=== PATIENT | male | born 1995 | race Caucasian/White ===

== ENCOUNTER → 2023-02-22 16:02 | Outpatient (BNVA) | payer OTHER, SELFPAY | PROVIDERS: PCP Nurse Practitioner Family; Visit Provider Otolaryngology | DX: S02.2XXA Fracture of nasal bones, initial encounter for closed fracture (principal); W21.07XA Struck by softball, initial encounter | CPT/HCPCS: 99203 ==

== ENCOUNTER 2023-04-09 13:51 | Emergency (ER) | payer OTHER, SELFPAY ==
[2023-04-09 13:54] VITALS: BP 122/82; PULSE 108; RESP 16; TEMP 37.1; O2SAT 96; BMI 38.7
--- NOTE | 2023-04-09 13:59 | XRR_ITS ---
PROCEDURE INFORMATION: Exam: XR Left Ankle Exam date and time: 04/09/2023 2:23 PM Age: 27 years old Clinical indication: Pain; Ankle; Left; Additional info: Fall pain TECHNIQUE: Imaging protocol: Radiologic exam of the left ankle. Views: 3 or more views. COMPARISON: No relevant prior studies available. FINDINGS: Bones/joints: Distal fibular metaphyseal comminuted mildly displaced fracture. Soft tissues: Normal. XR/XR ankle LT min 3V* [id number] IMPRESSION: Distal fibular metaphyseal comminuted mildly displaced fracture.
--- NOTE | 2023-04-09 13:59 | XRR_ITS ---
PROCEDURE INFORMATION: Exam: XR Left Foot Exam date and time: 04/09/2023 2:23 PM Age: 27 years old Clinical indication: Pain; Ankle; Left; Additional info: Fall pain TECHNIQUE: Imaging protocol: Radiologic exam of the left foot. Views: 3 or more views. COMPARISON: No relevant prior studies available. FINDINGS: Bones/joints: Normal. Soft tissues: Soft tissue swelling to the dorsum of the forefoot. XR/XR foot LT min 3V* [id number] IMPRESSION: 1. No acute bony findings. 2. Soft tissue swelling to the dorsum of the forefoot.
--- NOTE | 2023-04-09 13:59 | W.ED.EXTPRO ---
HPI - Extremity Problem General: Chief complaint: Extremity Injury, Lower Stated complaint: left ankle pain Time Seen by Provider: 04/09/23 13:53 History of Present Illness: Patient reports to the ER by EMS with complaints of left ankle pain. Patient states he was skating when he tripped and fell twisted his left ankle reports increasing pain and swelling since the fall. He was given approximately 100 mcg of fentanyl 4 mg Zofran on route to ER by EMS. Patient currently rates his pain 5 out of 10. Patient states the pain is worse with movement and better after he had was placed in a same splint and given pain medicine. Patient is never had any problems with this foot before however he has similar problems with the other foot. Review of Systems General: Reports: 10 or more systems reviewed and unremarkable except in HPI and below PFSH ED PFSH: Social History Smoking and tobacco status: never smoked Second hand smoke exposure: No Alcohol intake: never Substance/Drug Use: never Physical Exam Const: COMMON NORMALS: no acute distress, average body habitus, patient oriented x3, no limitations, healthy appearing, alert and well nourished HENMT: COMMON NORMALS: normocephalic, atraumatic, hearing grossly normal bilaterally, external ears normal, Normal external nose present and moist oral mucous membranes HEAD & SCALP: normocephalic and atraumatic NOSE: Normal external nose present EXTERNAL EAR: Yes external ears normal Neck/C-Spine: COMMON NORMALS: full ROM, no lymphadenopathy, supple, no meningeal signs, no JVD and Thyroid normal THYROID: Thyroid normal Chest: COMMONS NORMALS: normal inspection of the chest and normal palpation of entire chest wall Resp: COMMON NORMALS: normal respiratory effort, No retractions, No use of accessory muscles and clear to auscultation bilaterally AUSCULTATION: clear to auscultation bilaterally Cardio: COMMON NORMALS: no JVD, regular rate, regular rhythm, S1 normal heart sound present, S2 normal heart sound present, No gallops present (Cardio), No clicks present (Cardio), No murmurs present (Cardio) and No rub (Cardio) RATE: regular rate RHYTHM: regular rhythm HEART SOUNDS: S1 normal heart sound present and S2 normal heart sound present GI: COMMON NORMALS: Normal to inspection, nondistended, normoactive bowel sounds present, Soft to palpation, non-tender, No hepatosplenomegaly present and no masses PALPATION: Yes Soft to palpation and Yes No hepatosplenomegaly present : COMMON NORMALS: Yes no CVA tenderness BLADDER/KIDNEY EXAM: Yes no CVA tenderness Back/Pelvis: COMMON NORMALS: no CVA tenderness Extremity: NARRATIVE EXTREMITY EXAM: Left ankle in same splint stirrup style pain with palpation mild swelling. Neuro: COMMON NORMALS: patient oriented x3 SENSORIUM/ORIENTATION: Yes alert MENINGEAL SIGNS: Yes no meningeal signs Course Vital Signs: Vital signs: Vital Signs Temperature 98.8 F 04/09/23 13:54 Pulse Rate 108 H 04/09/23 13:54 Respiratory Rate 16 04/09/23 13:54 Blood Pressure 122/82 04/09/23 13:54 Pulse Oximetry 96 04/09/23 13:54 Oxygen Delivery Me thod Room Air 04/09/23 13:54 MDM - Extremity (Nontraumatic) Medical Decision Making Patient presents to the ER with complaints of foot and ankle pain status post fall. X-ray was obtained which did show distal fibular metaphyseal comminuted mildly displaced fracture. Patient be put in a OCL type splint and will be referred to Ortho. Patient be discharged home. Differential Diagnosis Unlikely herpes zoster, gout, cellulitis, superficial thrombophlebitis, deep venous thrombosis of upper extremity, lower extremity edema or deep vein thrombosis of lower extremity Medical Records I reviewed the patient's medical records. Lab Data I reviewed the patient's lab results. Radiology Impressions Ankle X-Ray 04/09/23 13:59 IMPRESSION: Distal fibular metaphyseal comminuted mildly displaced fracture. Foot X-Ray 04/09/23 13:59 IMPRESSION: 1. No acute bony findings. 2. Soft tissue swelling to the dorsum of the forefoot. Discharge Plan Discharge Patient Disposition: Home Clinical Impression: Fracture of distal end of fibula Qualifiers: Encounter type: initial encounter Fracture type: closed Fracture morphology: unspecified fracture morphology Laterality: left Qualified Code(s): S82.832A - Other fracture of upper and lower end of left fibula, initial encounter for closed fracture Condition: Stable Prescriptions: New hydrocodone-acetaminophen 5-325 mg tablet 1 tab PO Q6H PRN (Reason: pain) Qty: 14 0RF No Action No Known Home Medications Discharge Orders: Discharge ED (Routine); Ordered 04/09/23 Ordered By: Elliot Humphrey Referrals: Gaye Hurley APN [Primary Care Provider] - 1 week Patient Instructions: Ankle Fracture (ED), Opioid Safety, Pain Management Activity Restrictions/Additional Instructions: Please take your pain medicine as directed as needed. You have been referred to case management they will be working on getting you a referral to the orthopedic surgeon please anticipate a call from them within the next few days. If they have not contacted you please feel free to call back. Otherwise follow-up with your primary care practitioner in approximately 1 week as needed. Coding Level of Care Code ED Material Planner for Arleen Boyd
[2023-04-09 15:55] VITALS: BP 133/86; PULSE 92; RESP 16; O2SAT 97
[2023-04-09 15:56] VITALS: BP 133/86; PULSE 92; RESP 16; O2SAT 97
--- NOTE | 2023-04-10 11:17 | DCPLANNER ---
Addendum entered by Cecily Mathur 04/20/23 11:09: Patient had a follow up appointment scheduled with ortho - patient did attend appointment. Original Note: manager lighting had message to schedule a follow up appointment for patient with ortho. manager lighting sent patients information to the front office staff at ortho. Patients information will be printed and reviewed. Clinic will call patient with appointment information.
== END 2023-04-09 15:59 | disposition home or self-care (01) ==
PROVIDERS: Emergency Provider Emergency Medicine; PCP Nurse Practitioner Family
DX: S82.452A Displaced comminuted fracture of shaft of left fibula, initial encounter for closed fracture (principal); W01.0XXA Fall on same level from slipping, tripping and stumbling without subsequent striking against object, initial encounter; Y93.51 Activity, roller skating (inline) and skateboarding; Y92.331 Roller skating rink as the place of occurrence of the external cause
CPT/HCPCS: 29505; 73610; 73630; 99283

== ENCOUNTER 2023-04-16 06:51 | Day surgery (SDC) | payer OTHER, SELFPAY ==
[2023-04-15 15:53] VITALS: BMI 38.7
[2023-04-16] VITALS (14 sets, daily range): BP systolic 111–132; BP diastolic 66–87; PULSE 77–96; RESP 14–25; TEMP 36.1–36.6; O2SAT 95–99
--- NOTE | 2023-04-16 | XR_ITS ---
WS: [id number] Exam: XR ankle LT 2V [id number] Date/Time of Exam: 04/16/2023 12:00 AM Reason For Exam: orif ankle Comparison 04/09/2023. There is plate and screw fixation involving a fracture of the lower fibula stabilized in anatomic pos ition for healing. The ankle mortise is intact. XR/XR ankle LT min 3V* [id number] IMPRESSION: 1. Internal fixation involving a fracture of the lower fibula in excellent posi tion for healing.
--- NOTE | 2023-04-16 06:28 | W.PM.OPSUD ---
Surgery/Procedure H&P Update DATE OF PROCEDURE: April 16, 2023 DATE H&P PERFORMED: 04/12/23 CHANGES TO PREVIOUS DOCUMENTATION: None PLANNED PROCEDURE: Operation Date: 04/16/23 08:25 Proposed Procedures p Open reduction internal fixation left distal fibular fracture 31687,?S82.62XA(Left) - Vic Angelo DPM
[2023-04-16] MEDS: sodium chloride 0.9% 1,000 ML 30 ML IV (07:30)
[2023-04-16] MEDS: ondansetron 2 mg/ML SDV 2 mL 4 MG IVP (07:30)
[2023-04-16] MEDS: midazolam 1 mg/mL INJ 5 ML 5 MG IVP (07:39)
--- NOTE | 2023-04-16 07:48 | ANES.PREANE2 ---
Pre-Anesthetic Assessment Height/Weight: Height 1.68 m Weight 108.862 kg Temp Pulse Resp BP Pulse Ox O2 Del Method 97 F L 95 18 129/87 97 Room Air 04/16/23 07:20 04/16/23 07:20 04/16/23 07:20 04/16/23 07:20 04/16/23 07:20 04/16/23 07:20 Preop Diagnosis: Left distal fibular fracture Operation Date: 04/16/23 08:25 Proposed Procedures p Open reduction internal fixation left distal fibular fracture 32067,?S82.62XA(Left) - Vic Angelo DPM Familial anesthetic complications: none Was Beta Mojgan taken within 24 hours: N/A Was Clonidine taken within 24 hours: N/A Last intake: Intake Last Liquid Date 04/16/23 Last Liquid Time 06:00 Last Solid Date 04/15/23 Last Solid Time 18:30 Social No alcohol and No tobacco Exam alert, oriented x 3, clear to auscultation bilaterally and regular rate & rhythm Airway Mallampati: Class II Dentition: full Metabolic Morbid Obesity Anesthetic Plan ASA status: 2 Anesthesia: General and Regional (specify below) Medications/Allergies Home Medications Medication Instructions Recorded Confirmed Last Taken Type hydrocodone 10 mg-acetaminophen 1 tab PO Q6H PRN pain 7 days #28 04/16/23 Unknown Rx 325 mg tablet tabs Allergies Allergy/AdvReac Type Severity Reaction Status Date / Time No Known Allergies Allergy Verified 04/16/23 07:05 [facility] Anesthesia Social History Smoking and tobacco status: never smoked Second hand smoke exposure: No Alcohol intake: never Substance/Drug Use: never Data Anesthesia Cardiac Studies: No Data to Display
--- NOTE | 2023-04-16 07:49 | ANES.PROC ---
Anesthesia Procedures Procedure/Date: 04/16/23 Nerve Block ^: Nerve Block 1: Main Anesthesia: general anesthesia Time Out Performed: Yes Consent: requested by attending/covering physician, from patient, from other, risks and benefits reviewed, patient agrees to proceed and emergency procedure Nerve block location: popliteal (L) Anesthesia monitors applied: pulse oximetry, EKG, BP cuff and oxygen Nerve block position: supine Anesthetic Used: ropivicaine 0.5% (30 ml) and with decadron (4 mg) Ultrasound used to: recognize landmarks and visualize and ID femerol nerve Nerve Stimulator Used?: No Interscalene/Femoral BLK: 4 stimuplex 21 g needle used for position and inplane approach, visualize local anesthetic spread and no vascular puncture identified Injection: neg aspiration of heme Patient Tolerated Procedure: well Complications: none
[2023-04-16] MEDS: CELEcoxib 200 mg Capsule 400 MG PO (07:50)
[2023-04-16] MEDS: gabapentin 300 mg Capsule PO (07:52)
[2023-04-16] MEDS: ceFAZolin 2,000 MG in sodium chloride 0.9% (plus) 50 ML 100 MG IV (08:07)
--- NOTE | 2023-04-16 09:11 | P.OP_ITS ---
Operative Report Date of procedure: April 16, 2023 Pre-op diagnosis: Preop Diagnosis Left distal fibular fracture Post-op diagnosis: Left distal fibular fracture Procedure done: Open reduction internal fixation left distal fibular fracture. CPT code 41113 Implants: 2-0 Vicryl, 3-0 Vicryl, skin marilyn, fibular plate provided by [place] 28. 3.5 mm locking screws. 0.5% Marcaine plain 10 cc. Specimens removed/disposition: None Pathology: None Surgeon: Vic Angelo D.P.M. 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 Patient examined and evaluated, findings and treatment options were discussed with patient at length.? Reviewed x-rays taken in the emergency department on 04/09/2023 which is significant for a Jonny Choudhary C fracture with 2 mm of displacement, shortening and mild angulation medially of the distal fragment.? Ankle mortise is congruent.? There is subtle widening of the medial gutter which may be indicative of syndesmotic versus deltoid injury.? Recommended open reduction internal fixation of left distal fibular fracture and further evaluation of soft tissue supporting structures such as syndesmosis and deltoid cyst can be stressed intraoperatively and repaired if necessary.? Patient is agreeable wishes to proceed.? I reviewed at length with the patient, the risks, potential complications, benefits, alternatives, expectations, and typical outcomes associated with the surgery. The risks and potential complications were explained in detail, including but not limited to infection, wound dehiscence or soft tissue complications, bleeding and hematoma, chronic edema, neuritis or nerve damage producing numbness or chronic pain, CRPS, failure to relieve pain or worsening pain, thick / painful / unsightly scar, limited motion / stiffness, malposition, delayed union, malunion, or nonunion, fracture, reaction to implants, anesthetic complications, venous thromboembolism, and deformity recurrence.? I discussed the notion of no regrets with the patient as it pertains to complications and outcomes. The patient seemed to understand the nature of the proposed care and required convalescence. They asked appropriate questions, answered to their satisfaction. They are aware no guarantees can be made as to a satisfactory outcome and they understand there may be other pos sible unforeseen complications or outcomes not listed here that will be treated accordingly if they arise. There were no written or implied guarantees given to the patient. They gave informed consent to proceed. Procedure: Under mild sedation the patient was brought to the operating room and placed onto the operating table in supine position. A timeout was performed. Anesthesia was then administered by the anesthesia service. A left popliteal block was performed per anesthesia preoperatively. Well-padded pneumatic tourniquet was applied to the left high calf. Saphenous nerve block performed by myself with 5 cc of 0.5 sent Marcaine plain and 5 cc of 0.5% Marcaine plain administered in a V-block proximal to the operative site at the lateral ankle. The left lower extremity was scrubbed, prepped and draped utilizing normal aseptic technique. The left foot and ankle were exanguinated with an Esmarch bandage and the tourniquet inflated to 250 mmHg. Attention was directed to the left lateral ankle where a linear longitudinal incision was made directly over the lateral malleolus extending proximally through skin with a #15 blade. Dissection was carried down through subcutaneous tissue to the layer of periosteum utilizing a combination of sharp and blunt technique. Care was taken to retract and preserve neurovascular and tendinous structures. All bleeders were ligated and cauterized as necessary. The fracture was located and distracted and evacuated of its hematoma utilizing curettage and saline flush, fracture was reduced and fixated utilizing standard AO technique with a [place] 28 anatomic fibular plate and 3.5 mm locking screws with excellent bony apposition and compression noted. The fracture was anatomically reduced and this was confirmed utilizing the AP, oblique and lateral standard views of the left ankle utilizing intraoperative C arm, the left fibula was pulled out to length and derotated without angulation appreciated with fracture reduced and no hardware violating the ankle mortise. Smooth range of motion was appreciated of the left ankle. Cotton hook test was performed and syndesmosis and deltoid ligaments were intact. The incision was then irrigated with copious amounts of sterile skin solution and closed in a layered fashion. Periosteum was reapproximated utilizing 2-0 Vicryl, subcutane ous tissue reapproximated with 3-0 Vicryl and skin was closed with skin marilyn. The incision was dressed with Adaptic, sterile 4 x 4's, Kerlix and Brett wrap followed by application of a cam boot holding the ankle in neutral position. The tourniquet was deflated and a prompt hyperemic response was noted to the distal digits of the left foot. Patient tolerated the procedure and anesthesia well and was transferred to the PACU with vital signs stable and vascular status intact. Following a period of postoperative monitoring he will be discharged home is to remain strict nonweightbearing to the left lower extremity. He is to remain immobilized with a cam boot at all times and elevate his left foot while resting. He has crutches to assist with ambulation and nonweightbearing status. Prescription for hydrocodone 10/325 mg to be taken every 4-6 hours as needed for pain sent to [facility]. Patient was given at home care instructions, follow-up and my cell phone number to contact me with postoperative questions or concerns. I advised an 81 mg aspirin to be taken starting tomorrow morning after surgery 04/17/2023 until he is weightbearing again in approximately 6 weeks from now. Baby aspirin may potentially help reduce the risks of deep vein thrombosis.
[2023-04-16] MEDS: metoclopramide 5 mg/mL SDV 2 mL 10 MG IVP (09:42)
[2023-04-16] MEDS: scopolamine 1.5 Patch 1 PATCH TRANSDERMA (09:50)
[2023-04-16] MEDS: diphenhydrAMINE 50 mg/mL SDV 1mL 12.5 MG IVP (09:53)
--- NOTE | 2023-04-16 14:20 | ANE.PACU2 ---
Inpatient post-anesthesia follow up: Airway intact: Yes Vital signs: Temperature 98 F Pulse Rate 77 Respiratory Rate 18 Blood Pressure 132/82 Pulse Oximetry 97 Oxygen Delivery Me thod Room Air Oxygen Flow Rate 10.0 Fraction of Inspir ed Oxygen Hydration adequate: Yes Nausea and vomiting: No Pain level: 1 Mental status: Baseline
== END 2023-04-16 11:05 | disposition home or self-care (01) ==
PROVIDERS: PCP Nurse Practitioner Family; Visit Provider Podiatrist Foot & Ankle Surgery
PROC: (CPT 27792; principal; 2023-04-16 08:15)
DX: S82.832A Other fracture of upper and lower end of left fibula, initial encounter for closed fracture (principal); W17.89XA Other fall from one level to another, initial encounter; Y93.51 Activity, roller skating (inline) and skateboarding; Y99.0 Civilian activity done for income or pay; E66.01 Morbid (severe) obesity due to excess calories; Z68.38 Body mass index [BMI] 38.0-38.9, adult
CPT/HCPCS: 27792; 73610; 76000; C1713; J0330; J0690; J1100; J1200; J2250; J2405; J2704; J2765; J2795; J3490; J7030

== ENCOUNTER → 2023-04-22 10:44 | Outpatient (BNVA) | payer OTHER, SELFPAY | PROVIDERS: PCP Nurse Practitioner Family; Visit Provider Podiatrist Foot & Ankle Surgery | DX: Z98.890 Other specified postprocedural states (principal); S82.832A Other fracture of upper and lower end of left fibula, initial encounter for closed fracture; V00.121A Fall from non-in-line roller-skates, initial encounter | CPT/HCPCS: 73610 ==

== ENCOUNTER → 2023-04-29 13:10 | Outpatient (BNVA) | payer OTHER, SELFPAY | PROVIDERS: PCP Nurse Practitioner Family; Visit Provider Podiatrist Foot & Ankle Surgery | DX: S82.832A Other fracture of upper and lower end of left fibula, initial encounter for closed fracture (principal); W18.40XA Slipping, tripping and stumbling without falling, unspecified, initial encounter; Z98.890 Other specified postprocedural states; Z87.81 Personal history of (healed) traumatic fracture | CPT/HCPCS: 73610 ==

== ENCOUNTER 2023-05-09 21:38 | Emergency (ER) | payer OTHER, SELFPAY ==
[2023-05-09 22:01] VITALS: BP 152/83; PULSE 105; RESP 18; TEMP 36.9; O2SAT 95; BMI 38.7
[2023-05-09 23:36] VITALS: BP 128/82; PULSE 82; RESP 16; O2SAT 94
--- NOTE | 2023-05-09 23:51 | USR_ITS ---
PROCEDURE INFORMATION: Exam: US Duplex Left Lower Extremity Veins, Limited Exam date and time: 05/10/2023 1:01 AM Age: 27 years old Clinical indication: Pain; Leg, lower and foot; Left; Prior surgery; Surgery date: 3-7 days post-operative; Surgery type: Lt ankle fracture; Additional info: Calf pain, fever, cough, SOA, S/P ortho surgery TECHNIQUE: Imaging protocol: Real-time duplex ultrasound of the left extremity with 2-D bejarano scale, color Doppler flow and spectral waveform analysis including responses to compression and other maneuvers (when performed) with image documentation. Limited exam focused on the left lower extremity veins. COMPARISON: CR (LOW EXM, ) 04/09/2023 2:23 PM FINDINGS: Left deep veins: Unremarkable. The common femoral, femoral, proximal profunda femoral and popliteal veins are patent without thrombus. Normal Doppler waveforms. Normal compressibility and/or augmentation response. Left superficial veins: Unremarkable. Saphenofemoral junction is patent without thrombus. Soft tissues: Unremarkable. US/CV venous duplex [facility] [id number] IMPRESSION: No evidence of deep vein thrombosis.
--- NOTE | 2023-05-09 23:51 | XRR_ITS ---
PROCEDURE INFORMATION: Exam: XR Chest Exam date and time: 05/09/2023 11:57 PM Age: 27 years old Clinical indication: Patient HX: C/O chest discomfort with cough and fever. ; Additional info: Cough, fever, tight chest, cough, S/P ortho surgery TECHNIQUE: Imaging protocol: Radiologic exam of the chest. Views: 1 view. COMPARISON: No relevant prior studies available. FINDINGS: Lungs: Unremarkable. No consolidation. Pleural spaces: Unremarkable. No pleural effusion. No pneumothorax. Heart/Mediastinum: Unremarkable. No cardiomegaly. Bones/joints: Unremarkable. XR/XR chest 1V [id number] IMPRESSION: No acute findings.
[2023-05-10 00:08] LABS: Basophils # 0.1 10^3/uL (0.0-0.1); Basophils % 0.6 %; Eosinophils # 0.4 10^3/uL (0.0-0.8); Eosinophils % 4.8 %; Hematocrit 42.5 % (42.0-52.0); Lymphocytes # 1.4 10^3/uL (0.8-4.8); Lymphocytes % 18.7 %; Mean Corpuscular HGB Conc 32.9 g/dL (30.0-36.0); Mean Corpuscular Hemoglobin 27.8 pg (28.0-34.0); Mean Corpuscular Volume 84.3 fl (80-94); Mean Platelet Volume 10.8 fL (7.4-10.4); Monocytes # 0.8 10^3/uL (0.2-0.9); Monocytes % 10.6 %; Neutrophils # 5.02 10^3/uL (1.8-7.7); Nucleated Red Blood Cells % 0 %; Platelet Count 275 10^3/cmm (130-400); Red Blood Count 5.04 10^6/uL (4.1-5.3); Red Cell Distribution Width 11.9 % (12.1-15.1); White Blood Count 7.7 10^3/uL (4.0-10.0)
[2023-05-10 00:25] LABS: D Dimer 0.57 ug/mIFEU (0-0.59)
[2023-05-10 00:30] LABS: Alanine Aminotransferase 30 U/L (0-41); Albumin Level 4.5 g/dL (3.5-5.2); Alkaline Phosphatase 78 U/L (40-130); Anion Gap 15.3 (5-19); Aspartate Amino Transferase 18 U/L (0-40); Blood Urea Nitrogen 19 mg/dL (6-20); C Reactive Protein 5.2 mg/L (0.0-4.9); Calcium 9.8 mg/dL (8.5-10.5); Carbon Dioxide 25 mmol/L (22-29); Chloride 99 mmol/L (98-107); Glomerular Filtration Rate 117.8 mL/min (90-130); Glucose 89 mg/dL (65-115); Osmolality Calculated 282 mOsm/kg (285-295); Potassium 4.3 mmol/L (3.5-5.1); Sodium 135 mmol/L (136-145); Total Bilirubin 0.2 mg/dL (0.15-1.2); Total Protein 7.5 g/dL (6.6-8.7)
--- NOTE | 2023-05-10 00:30 | ED_ITS ---
HPI - Fever General: Chief Complaint: Fever Stated Complaint: fever/ pain in left leg Time Seen by Provider: 05/09/23 23:23 Source: patient and family Mode of arrival: wheelchair Limitations: no limitations History of Present Illness: Patient presents to the emergency department tonight accompanied by his for evaluation treatment of sudden return of left lower leg pain after surgery, general ill feeling, cough, and fever. Patient reports he had been doing well after surgery to repair a fracture to his distal left fibula. He states that about 3 weeks ago he received a plate and metal screws by Dr. Angelo to repair an injury he sustained after falling while skating. However, over the last 24 to 48 hours, patient has started to have an increase in pain in his left lower leg. He states he had not needed to take pain medicine for quite some time but, the last day or 2 has been taking his pain medicine to help with his discomfort. He also states he has developed a somewhat dry cough and chest tightness and fever. He denies abdominal discomfort. He spoke to his orthopedic surgeon who said he needed to come in for evaluation and have an ultrasound performed and a chest x-ray. Review of Systems General: Reports: 10 or more systems reviewed and unremarkable except in HPI and below PFSH ED PFSH: Social History Smoking and tobacco status: never smoked Second hand smoke exposure: No Alcohol intake: never Substance/Drug Use: never Physical Exam Const: COMMON NORMALS: no acute distress, average body habitus and patient oriented x3 HENMT: COMMON NORMALS: normocephalic, atraumatic, hearing grossly normal bilaterally, Normal external nose present and moist oral mucous membranes HEAD & SCALP: normocephalic and atraumatic NOSE: Normal external nose present Eye: COMMON NORMALS: Equal, round and reactive pupils present, EOMs intact bilaterally and conjunctivae normal CONJUNCTIVA: Yes conjunctivae normal PUPIL: Yes Equal, round and reactive pupils present Neck/C-Spine: COMMON NORMALS: no JVD Lymph: LYMPHATIC: no lymphadenopathy noted Resp: COMMON NORMALS: normal respiratory effort, No retractions and No use of accessory muscles Cardio: COMMON NORMALS: no JVD, regular rate and regular rhythm RATE: regular rate RHYTHM: regular rhythm GI: COMMON NORMALS: Normal to inspection, nondistended, normoactive bowel sounds present : COMMON NORMALS: Yes no CVA tenderness BLADDER/KIDNEY EXAM: Yes no CVA tenderness Back/Pelvis: COMMON NORMALS: no CVA tenderness and thoraco-lumbar ROM normal Extremity: COMMON NORMALS: normal to inspection and capillary refill normal NARRATIVE EXTREMITY EXAM: Patient with painful range of motion of the ankle-this is new as he had been getting better. He is tender along the posterior calf-especially the more inferiorly palpated. No obvious edema or pitting edema on the left lower extremity. Neuro: COMMON NORMALS: patient oriented x3 Psych: COMMON NORMALS: mental status grossly normal, Normal thought process present, cooperative, normal affect and activity/motor behavior normal THOUGHT PROCESS: Normal thought process present Skin: NARRATIVE SKIN EXAM: Patient has a well-healing surgical scar to the left lateral, distal leg approximately 6 inches in length without erythema, wound dehiscence, or draining. No obvious swelling or bruising to this area. Course Vital Signs: Vital signs: Vital Signs Temperature 98.5 F 05/09/23 22:01 Pulse Rate 105 H 05/09/23 22:01 Respiratory Rate 18 05/09/23 22:01 Blood Pressure 152/83 05/09/23 22:01 Pulse Oximetry 95 05/09/23 22:01 Oxygen Delivery Me thod Room Air 05/09/23 22:01 MDM - Fever Medical Decision Making Patient presented to the emergency department today for sudden, acute worsening of previous surgical site. Patient had been doing well postoperatively and was advancing his range of motion as recommended by his orthopedic surgeon until the last 48 hours or so. Patient has had worsening pain with pain now also felt in the left calf region. Patient also states that he has developed a cough and some tightness in his chest and reports fevers as well. Patient had reached out to his orthopedic surgeon who had concerns for blood clot given his postoperative status and wanted him to be evaluated. I discussed with patient that it is a legitimate concern and we were able to do an ultrasound and chest x-ray which revealed no acute findings today. Explained to the patient that the other concern for worsening pain and new onset fever postoperatively could be infection so, we proceeded on with a CT exam which was also negative for acute concerns of infection. Patient may be developing an upper respiratory infection. I encouraged him to carefully monitor the symptoms. I also encouraged him to notify his orthopedic surgeon of his evaluation through the emergency department today so they are aware of sudden worsening of his postoperative pain. Patient may need to cut back on his activity level or, they may have better insight on the patient's expected clinical course of healing. Return precautions discussed at bedside. Patient verbalized understanding and agreement to treatment plan. Differential Diagnosis Unlikely gastroenteritis (DVT, PE, wound dehiscence, seroma, osteo, cellulitis/abscess, URI) Lab Data 05/09/23 23:47 05/09/23 23:47 Radiology Impressions Chest X-Ray 05/09/23 23:51 IMPRESSION: No acute findings. Venous Duplex 05/09/23 23:51 IMPRESSION: No evidence of deep vein thrombosis. Lower Extremity CT 05/10/23 01:47 IMPRESSION: 1. No abscess is identified. 2. Left ankle and left lateral lower leg skin thickening with subcutaneous edema. This could be due to bland edema or cellulitis. 3. Distal fibular fracture ORIF appears intact. 4. Subtle fracture of the distal tibial posterior malleolus. Laboratory Results WBC 7.7 10^3/uL (4.0-10.0) 05/09/23 23:47 RBC 5.04 10^6/uL (4.1-5.3) 05/09/23 23:47 Hgb 14.0 g/dL (11.7-16.6) 05/09/23 23:47 Hct 42.5 % (42.0-52.0) 05/09/23 23:47 MCV 84.3 fl (80-94) 05/09/23 23:47 MCH 27.8 pg (28.0-34.0) L 05/09/23 23:47 MCHC 32.9 g/dL (30.0-36.0) 05/09/23 23:47 RDW 11.9 % (12.1-15.1) L 05/09/23 23:47 Plt Count 275 10^3/cmm (130-400) 05/09/23 23:47 MPV 10.8 fL (7.4-10.4) H 05/09/23 23:47 Neut % (Auto) 65.0 % 05/09/23 23:47 Lymph % (Auto) 18.7 % 05/09/23 23:47 Franklin % (Auto) 10.6 % 05/09/23 23:47 Eos % (Auto) 4.8 % 05/09/23 23:47 Baso % (Auto) 0.6 % 05/09/23 23:47 Neut # (Auto) 5.02 10^3/uL (1.8-7.7) 05/09/23 23:47 Lymph # (Auto) 1.4 10^3/uL (0.8-4.8) 05/09/23 23:47 Franklin # (Auto) 0.8 10^3/uL (0.2-0.9) 05/09/23 23:47 Eos # (Auto) 0.4 10^3/uL (0.0-0.8) 05/09/23 23:47 Baso # (Auto) 0.1 10^3/uL (0.0-0.1) 05/09/23 23:47 Nucleated RBC % (auto) 0 % 05/09/23 23: Nucleated RBCs # 0.0 /100WBC 05/09/23 23:47 ESR 6 mm/hr (0-10) 05/09/23 23:47 D-Dimer 0.57 ug/mIFEU (0-0.59) 05/09/23 23:47 Sodium 135 mmol/L (136-145) L 05/09/23 23:47 Potassium 4.3 mmol/L (3.5-5.1) 05/09/23 23:47 Chloride 99 mmol/L (98-107) 05/09/23 23:47 Carbon Dioxide 25 mmol/L (22-29) 05/09/23 23:47 Anion Gap 15.3 (5-19) 05/09/23 23:47 BUN 19 mg/dL (6-20) 05/09/23 23:47 Creatinine 0.8 mg/dL (0.7-1.2) 05/09/23 23:47 GFR Calculation 117.8 mL/min (90-130) 05/09/23 23:47 Glucose 89 mg/dL (65-115) 05/09/23 23:47 Calculated Osmolality 282 mOsm/kg (285-295) L 05/09/23 23:47 Calcium 9.8 mg/dL (8.5-10.5) 05/09/23 23:47 Total Bilirubin 0.2 mg/dL (0.15-1.2) 05/09/23 23:47 AST 18 U/L (0-40) 05/09/23 23:47 ALT 30 U/L (0-41) 05/09/23 23:47 Alkaline Phosphatase 78 U/L (40-130) 05/09/23 23:47 C-Reactive Protein 5.2 mg/L (0.0-4.9) H 05/09/23 23:47 Total Protein 7.5 g/dL (6.6-8.7) 05/09/23 23:47 Albumin 4.5 g/dL (3.5-5.2) 05/09/23 23:47 Globulin 3.0 g/dL (1.3-4.6) 05/09/23 23:47 Procalcitonin 0.06 ng/mL (0-0.5) 05/09/23 23:47 Discharge Plan Discharge Patient Disposition: Home Clinical Impression: Postoperative pain, Fever, Pain of left calf, Cough Condition: Stable Prescriptions: No Action No Known Home Medications Discharge Orders: Discharge ED (Routine); Ordered 05/10/23 Ordered By: Camilla Desai Referrals: Gaye Hurley APN [Primary Care Provider] - Discharge Diet: Usual diet Discharge Activity: Limit activity as instructed Activity Restrictions/Additional Instructions: Initial presentation to the emergency department was concerning for the po tential of a blood clot formation or pulmonary embolism. We did run testing to evaluate these concerns further and, was found to be negative on work-up. Given the return of pain in your ankle, we did proceed with a CT examination to look for any concerns for underlying infection or issues postoperatively. CT examination shows no acute concerns at this time. It is possible you are developing an upper respiratory infection. Closely monitor for change or worsening in your condition. I encourage you to reach out to your orthopedic surgeon to make them aware of your evaluation here in the ER today but, to also let them know of your worsening pain in your surgical site. They may wish to alter your activity level or, offer insight as to typical clinical course of healing. Coding Level of Care Code ED Foaming Machine Operator for Arleen Boyd
[2023-05-10 00:36] VITALS: BP 122/80; PULSE 81; RESP 16; O2SAT 94
[2023-05-10 00:37] LABS: Procalcitonin 0.06 ng/mL (0-0.5)
[2023-05-10 00:45] LABS: Erythrocyte Sedimentation Rate 6 mm/hr (0-10)
[2023-05-10 01:36] VITALS: BP 124/66; PULSE 84; RESP 14; O2SAT 94
--- NOTE | 2023-05-10 01:47 | CTR_ITS ---
PROCEDURE INFORMATION: Exam: CT Left Lower Extremity With Contrast, Ankle Exam date and time: 05/10/2023 2:03 AM Age: 27 years old Clinical indication: Swelling, leg or foot; Ankle; Prior surgery; Surgery date: <1 month; Surgery type: Left fibular fixation three weeks ago. Patient HX: C/O continued pain with swelling three weeks post op left fibular fixation. ; Additional info: Pain, return of post op pain, fever, S/P hardware 3wks ago TECHNIQUE: Imaging protocol: CT of the left lower extremity with intravenous contrast was performed. Exam focused on the ankle. Radiation optimization: All CT scans at this facility use at least one of these dose optimization techniques: automated exposure control; mA and/or kV adjustment per patient size (includes targeted exams where dose is matched to clinical indication); or iterative reconstruction. Contrast material: OMNI 350; Contrast volume: 100 ml; Contrast route: INTRAVENOUS (IV); REPORTING DATA: Count of CT and Cardiac NM exams in prior 12 months: This patient has received 0 known CTs and 0 known cardiac nuclear medicine studies in the 12 months prior to the current study. COMPARISON: CR XR ankle LT min 3V* [id number] 04/29/2023 1:15 PM RADIATION DOSE METRICS: Total DLP (mGy-cm): 138.65 FINDINGS: Bones/joints: Distal fibular fracture ORIF appears intact. There is no new fracture or focal bone destruction is identified. Soft tissues: Lateral ankle and lower leg subcutaneous edema is present. No evidence of abscess. There is a nondisplaced vertical fracture of the posterior malleolus. Other findings: Small ankle effusion. CT/CT lower leg LT w con [id number] IMPRESSION: 1. No abscess is identified. 2. Left ankle and left lateral lower leg skin thickening with subcutaneous edema. This could be due to bland edema or cellulitis. 3. Distal fibular fracture ORIF appears intact. 4. Subtle fracture of the distal tibial posterior malleolus.
[2023-05-10 02:06] VITALS: BP 136/94; PULSE 85; RESP 16; O2SAT 94
[2023-05-10] MEDS: iohexol 350 mg/mL 500 mL Btl (per mL) IV (02:06)
[2023-05-10 03:13] VITALS: BP 154/106; PULSE 91; RESP 14; O2SAT 95
== END 2023-05-10 03:19 | disposition home or self-care (01) ==
PROVIDERS: Emergency Provider Physician Assistant; PCP Nurse Practitioner Family
DX: G89.18 Other acute postprocedural pain (principal); M79.662 Pain in left lower leg; R05.9 Cough, unspecified
CPT/HCPCS: 36415; 71045; 73701; 80053; 84145; 85025; 85378; 85651; 86140; 87040; 93971; 99285; Q9967

== ENCOUNTER → 2023-05-13 13:53 | Outpatient (BNVA) | payer OTHER, SELFPAY | PROVIDERS: PCP Nurse Practitioner Family; Visit Provider Podiatrist Foot & Ankle Surgery | DX: Z98.890 Other specified postprocedural states (principal); S82.832A Other fracture of upper and lower end of left fibula, initial encounter for closed fracture; X58.XXXA Exposure to other specified factors, initial encounter | CPT/HCPCS: 73610 ==

== ENCOUNTER → 2023-05-27 07:33 | Outpatient (BNVA) | payer OTHER, SELFPAY | PROVIDERS: PCP Nurse Practitioner Family; Visit Provider Podiatrist Foot & Ankle Surgery | DX: Z98.890 Other specified postprocedural states; Z87.81 Personal history of (healed) traumatic fracture; S82.832D Other fracture of upper and lower end of left fibula, subsequent encounter for closed fracture with routine healing; X58.XXXD Exposure to other specified factors, subsequent encounter | CPT/HCPCS: 73610 ==

== ENCOUNTER → 2023-06-10 14:47 | Outpatient (BNVA) | payer OTHER, SELFPAY | PROVIDERS: PCP Nurse Practitioner Family; Visit Provider Podiatrist Foot & Ankle Surgery | DX: S82.832A Other fracture of upper and lower end of left fibula, initial encounter for closed fracture (principal); Z98.890 Other specified postprocedural states; Z87.81 Personal history of (healed) traumatic fracture; X58.XXXA Exposure to other specified factors, initial encounter | CPT/HCPCS: 73610 ==

== ENCOUNTER 2023-06-10 15:31 | Outpatient (CLI) | payer OTHER, SELFPAY | END 2023-06-10 15:32 | disposition home or self-care (01) | LOC: SPT 15:32 | PROVIDERS: PCP Nurse Practitioner Family; Visit Provider Podiatrist Foot & Ankle Surgery | DX: Z46.89 Encounter for fitting and adjustment of other specified devices (principal); Z98.890 Other specified postprocedural states | CPT/HCPCS: 97760; L1902 ==

== ENCOUNTER → 2023-06-30 07:05 | Outpatient (BNVA) | payer OTHER, SELFPAY | PROVIDERS: PCP Nurse Practitioner Family; Visit Provider Podiatrist Foot & Ankle Surgery | DX: S82.832A Other fracture of upper and lower end of left fibula, initial encounter for closed fracture (principal); Z98.890 Other specified postprocedural states; Z87.81 Personal history of (healed) traumatic fracture; X58.XXXA Exposure to other specified factors, initial encounter | CPT/HCPCS: 73610 ==

== ENCOUNTER → 2023-07-29 14:31 | Outpatient (BNVA) | payer OTHER, SELFPAY | PROVIDERS: PCP Nurse Practitioner Family; Visit Provider Podiatrist Foot & Ankle Surgery | DX: Z98.890 Other specified postprocedural states; Z87.81 Personal history of (healed) traumatic fracture; S82.832D Other fracture of upper and lower end of left fibula, subsequent encounter for closed fracture with routine healing; X58.XXXD Exposure to other specified factors, subsequent encounter | CPT/HCPCS: 73610 ==

== ENCOUNTER → 2023-09-22 15:21 | Outpatient (BNVA) | payer OTHER, SELFPAY | PROVIDERS: PCP Nurse Practitioner Family; Visit Provider Surgery | DX: L98.9 Disorder of the skin and subcutaneous tissue, unspecified (principal) | CPT/HCPCS: 11400; 88304; 99204 ==

== ENCOUNTER → 2023-10-14 07:26 | Outpatient (BNVA) | payer OTHER, SELFPAY | PROVIDERS: PCP Nurse Practitioner Family; Visit Provider Podiatrist Foot & Ankle Surgery | DX: L60.0 Ingrowing nail (principal) | CPT/HCPCS: 11750 ==

== ENCOUNTER 2024-02-11 12:48 | Emergency (ER) | payer OTHER, SELFPAY ==
[2024-02-11 12:56] VITALS: BP 139/94; PULSE 101; RESP 17; TEMP 37.4; O2SAT 100
--- NOTE | 2024-02-11 13:01 | ED_ITS ---
HPI - Abdominal Pain 2 General: Chief Complaint: Abdominal Pain Stated Complaint: lower back beba, right side abd pain, n/v/d Time Seen by Provider: 02/11/24 12:54 Source: patient and family () Mode of arrival: ambulatory Limitations: no limitations History of Present Illness: Patient is a nice 28-year-old male who presents to ED today along with his for evaluation of right lower quadrant abdominal pain. Patient states he initially began noticing the pain approximately a week ago. He felt like pain was minimal and intermittent at the time but it has progressively worsened in severity and is now more constant. Patient states that today he has had constant fairly significant discomfort now accompanied with nausea. He has had some mild diarrhea throughout the week but states he is lactose intolerant so this is not overly abnormal for him. Today he is reporting subjective fevers. 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 He denies previous abdominal surgeries. 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) Onset (ago): day(s) Pain Consistency: constant and intermittent Location: RLQ Severity: severe Quality: aching Radiation: back Migration to: no migration Exacerbating factors: movement Relieving factors: nothing Associated Symptoms: Reports diarrhea, fever(s) (subjective-starting today) and nausea; Denies chills, dysuria, hematochezia, hematuria, hematemesis, melena and vomiting Review of Systems 2 Const: Reports: fever(s) (subjective-starting today); Denies: chills, body aches, fatigue or malaise Card: Denies: chest pain Resp: Denies: dyspnea GI: Reports: abdominal pain, nausea and diarrhea; Denies: vomiting, hematemesis, rectal pain, hematochezia or melena : Denies: flank pain, dysuria or hematuria Musc: Reports: back pain; Denies: neck pain, extremity pain, extremity swelling, joint pain or joint swelling Skin/Breast: Denies: rash Neuro: Denies: headache(s), numbness in extremities, weakness in extremities or sensory changes PFSH ED 2 PFSH: Family History Denies family history of Anesthesia complication Social History Smoking and tobacco/nicotine status: never used tobacco/nicotine Second hand smoke exposure: No Alcohol intake: never Substance/Drug Use: never Physical Exam 2 Const: COMMON NORMALS: no acute distress, patient oriented x3, no limitations, alert and well nourished GENERAL APPEARANCE: cooperative NUTRITIONAL APPEARANCE: overweight ORIENTATION/CONSCIOUSNESS: Yes awake, Yes oriented to person, Yes oriented to place and Yes oriented to time Resp: COMMON NORMALS: normal respiratory effort and clear to auscultation bilaterally AUSCULTATION: clear to auscultation bilaterally Cardio: COMMON NORMALS: regular rate and regular rhythm RATE: regular rate RHYTHM: regular rhythm GI: COMMON NORMALS: Normal to inspection, nondistended, normoactive bowel sounds present, Soft to palpation, No hepatosplenomegaly present and no masses INSPECTION: Yes normal to inspection AUSCULTATION: Yes normoactive bowel sounds PALPATION: Yes Soft to palpation, Yes Tenderness to palpation present (GI) (RUQ, RLQ, LLQ; max tenderness to RLQ), No Rigid due to palpation, Yes No hepatosplenomegaly present, Yes Rebound tenderness present and Yes Other GI palpation findings present (+ rovsign's, heel tap, rebound tenderness, psoas; ) : COMMON NORMALS: Yes no CVA tenderness BLADDER/KIDNEY EXAM: Yes no CVA tenderness Back/Pelvis: COMMON NORMALS: no CVA tenderness, thoracic and lumbar spine normal to inspection and no thoracic nor lumbar tenderness Extremity: GENERAL: Yes normal exam except as noted Neuro: COMMON NORMALS: patient oriented x3 SENSORIUM/ORIENTATION: Yes alert, Yes oriented to person, Yes oriented to place and Yes oriented to time Skin: COMMON NORMALS: no rashes or lesions noted GENERAL SKIN EXAM: no rashes or lesions noted Course 2 Vital Signs: Vital signs: Vital Signs Temperature 99.4 F 02/11/24 12:56 Pulse Rate 98 02/11/24 13:58 Respiratory Rate 18 02/11/24 13:37 Blood Pressure 153/97 02/11/24 13:58 Pulse Oximetry 98 02/11/24 13:58 Oxygen Delivery Me thod Room Air 02/11/24 12:56 MDM - Abdominal Pain Medical Decision Making Patient is a nice 28-year-old male here for primarily right lower quadrant abdominal pain. Blood work is unremarkable. White count is normal. UA is clear. CT scan is unremarkable. Recommend close observation of symptoms at home. Return precautions given. Differential Diagnosis Likely abdominal pain, acute appendicitis, calculus of kidney, constipation and diverticulitis Medical Records I reviewed the patient's medical records. Lab Data I reviewed the patient's lab results. 02/11/24 13:13 02/11/24 13:13 Labs/Radiology: Laboratory Results WBC 7.14 10^3/uL (3.29-11.43) 02/11/24 13:13 RBC 5.56 10^6/uL (3.85-5.65) 02/11/24 13:13 Hgb 15.50 g/dL (11.27-16.99) 02/11/24 13:13 Hct 47.2 % (37-53) 02/11/24 13:13 MCV 84.9 fl (82-101) 02/11/24 13:13 MCH 27.9 pg (27-33) 02/11/24 13:13 MCHC 32.8 g/dL (30-55) 02/11/24 13:13 RDW 11.7 % (12.1-15.1) L 02/11/24 13:13 Plt Count 259 10^3/cmm (157-399) 02/11/24 13:13 MPV 10.2 fL (7.4-10.4) 02/11/24 13:13 Neut % (Auto) 69.9 % 02/11/24 13:13 Lymph % (Auto) 13.6 % 02/11/24 13:13 Bureau % (Auto) 13.7 % 02/11/24 13:13 Eos % (Auto) 1.7 % 02/11/24 13:13 Baso % (Auto) 0.7 % 02/11/24 13:13 Neut # (Auto) 4.99 10^3/uL (1.8-7.7) 02/11/24 13:13 Lymph # (Auto) 1.0 10^3/uL (0.8-4.8) 02/11/24 13:13 Bureau # (Auto) 1.0 10^3/uL (0.2-0.9) H 02/11/24 13:13 Eos # (Auto) 0.1 10^3/uL (0.0-0.8) 02/11/24 13:13 Baso # (Auto) 0.1 10^3/uL (0.0-0.1) 02/11/24 13:13 Nucleated RBC % (auto) 0 % 02/11/24 13:13 Nucleated RBCs # 0.0 /100WBC 02/11/24 13:13 Sodium 139 mmol/L (136-145) 02/11/24 13:13 Potassium 4.0 mmol/L (3.5-5.1) 02/11/24 13:13 Chloride 102 mmol/L (98-107) 02/11/24 13:13 Carbon Dioxide 26 mmol/L (22-29) 02/11/24 13:13 Anion Gap 15.0 (5-19) 02/11/24 13:13 BUN 11 mg/dL (6-20) 02/11/24 13:13 Creatinine 0.9 mg/dL (0.7-1.2) 02/11/24 13:13 GFR Calculation 102.0 mL/min (90-130) 02/11/24 13:13 Glucose 92 mg/dL (65-115) 02/11/24 13:13 Calculated Osmolality 287 mOsm/kg (285-295) 02/11/24 13:13 Calcium 9.2 mg/dL (8.5-10.5) 02/11/24 13:13 Total Bilirubin 0.3 mg/dL (0.15-1.2) 02/11/24 13:13 AST 32 U/L (0-40) 02/11/24 13:13 ALT 56 U/L (0-41) H 02/11/24 13:13 Alkaline Phosphatase 93 U/L (40-130) 02/11/24 13:13 Total Protein 7.9 g/dL (6.6-8.7) 02/11/24 13:13 Albumin 4.8 g/dL (3.5-5.2) 02/11/24 13:13 Globulin 3.1 g/dL (1.3-4.6) 02/11/24 13:13 Lipase 15 U/L (13-60) 02/11/24 13:13 Urine Color Yellow (Yellow) 02/11/24 13:30 Urine Appearance Clear (CLEAR) 02/11/24 13:30 Urine pH 5 (5-7) 02/11/24 13:30 Ur Specific [place] 1.020 (1.005-1.030) 02/11/24 13:30 Urine Protein Neg (Negative) 02/11/24 13:30 Urine Glucose (UA) Norm (Normal) 02/11/24 13:30 Urine Ketones Negative (Negative) 02/11/24 13:30 Urine Blood Neg (Negative) 02/11/24 13:30 Urine Nitrate Negative (Negative) 02/11/24 13:30 Urine Bilirubin Neg (Negative) 02/11/24 13:30 Urine Urobilinogen Norm mg/dL (Negative) 02/11/24 13:30 Ur Leukocyte Esterase Negative (Negative) 02/11/24 13:30 All radiology interpretation(s) finalized by discharge Discharge Plan Discharge Patient Disposition: Home Clinical Impression: Right lower quadrant abdominal pain of unknown etiology Condition: Stable Prescriptions: No Action sulfamethoxazole-trimethoprim [Bactrim DS] 800-160 mg tablet 1 tab PO BID 10 Days Qty: 20 0RF mupirocin 2 % ointment 1 applic topical TID Qty: 22 0RF silver sulfadiazine [Silvadene] 1 % cream 1 applic topical BID Qty: 50 0RF Rx Instructions: apply a 1.5 mm thickness cephalexin 500 mg capsule 500 mg PO BID 7 Days Qty: 14 0RF Discharge Orders: Discharge ED (Routine); Ordered 02/11/24 Ordered By: Oanh Brenner Referrals: Gaye Hurley APN [Primary Care Provider] - Patient Instructions: Abdominal Pain (ED) Activity Restrictions/Additional Instructions: As we discussed your blood work today was unremarkable. Your CT imaging was normal. Please continue to monitor symptoms closely over the weekend. Please return to the emergency department for worsening or severe abdominal pain, repetitive episodes of vomiting or diarrhea, fevers greater than 100.4, severe testicular pain/swelling/redness, generally feeling worse or unwell, or any other concerns you may have. Otherwise you can follow-up with primary care next week if symptoms do not seem to be improving. It was a pleasure to care for you today. I hope you begin to feel better soon. Coding Level of Care Code ED Lime Trimmer for Arleen Boyd
--- NOTE | 2024-02-11 13:15 | CT_ITS ---
WS: [id number] CT ABDOMEN AND PELVIS WITH CONTRAST HISTORY: RLQ abdominal pain TECHNIQUE: Imaging performed of the abdomen and pelvis with IV contrast. Single phase imaging of the abdomen. Coronal and sagittal reformats are submitted. All CT scans at [facility] use at [facility] [facility] one of these dose optimization techniques: automated exposure control; mA and/or kV adjustment per patient size (includes targeted exams where dose is matched to clinical indication); or iterative re construction. IV CONTRAST: Omnipaque 350; 100 mL IV. Oral contrast: No DLP: 1063.50 mGy.cm COMPARISON: None available. Lower thorax: Lung bases are clear. Heart is normal size. No hiatal hernia. Liver/biliary system: Normal size with no intrahepatic dilatation. Gallbladder: Normal. No gallstones or wall thickening. No pericholecystic fluid. Pancreas: Normal size pancreas and pancreatic duct. No adjacent inflammation. Spleen: Normal size spleen. No mass or infarct. Adrenal glands: Normal. Right kidney: Normal. Left kidney: Normal. Aorta: Normal. Lymphadenopathy: None. Free fluid: None. GI tract: Unremarkable. Normal appendix. No colitis. Abdominal wall: Fat containing umbilical hernia. Pelvis: No free fluid or adenopathy within the pelvis. Bones: Unremarkable. IMPRESSION: 1. Normal CT abdomen and pelvis.
[2024-02-11 13:25] LABS: Basophils # 0.1 10^3/uL (0.0-0.1); Basophils % 0.7 %; Eosinophils # 0.1 10^3/uL (0.0-0.8); Eosinophils % 1.7 %; Hematocrit 47.2 % (37-53); Lymphocytes % 13.6 %; Mean Corpuscular HGB Conc 32.8 g/dL (30-55); Mean Corpuscular Hemoglobin 27.9 pg (27-33); Mean Corpuscular Volume 84.9 fl (82-101); Mean Platelet Volume 10.2 fL (7.4-10.4); Monocytes % 13.7 %; Neutrophils # 4.99 10^3/uL (1.8-7.7); Neutrophils % 69.9 %; Nucleated Red Blood Cells % 0 %; Platelet Count 259 10^3/cmm (157-399); Red Blood Count 5.56 10^6/uL (3.85-5.65); Red Cell Distribution Width 11.7 % (12.1-15.1); White Blood Count 7.14 10^3/uL (3.29-11.43)
[2024-02-11 13:37] VITALS: RESP 18; O2SAT 100
[2024-02-11] MEDS: ondansetron 2 mg/ML SDV 2 mL 4 MG IVP (13:37)
[2024-02-11] MEDS: sodium chloride 0.9% 1,000 ML 999 ML IV (13:37)
[2024-02-11] MEDS: morphine 4 mg/mL SDV 1 mL IVP (13:37)
[2024-02-11 13:41] LABS: Add Urine Microscopic? NO; Charge for UA Resulting for Rev
[2024-02-11 13:49] LABS: Bilirubin Urine Neg (Negative); Blood Urine Neg (Negative); Glucose Urine UA Norm (Normal); Ketones Urine Negative (Negative); Leukocyte Esterase Urine Negative (Negative); Nitrate Urine Negative (Negative); Protein Urine Neg (Negative); Urine Appearance Clear (CLEAR); Urine Color Yellow (Yellow); Urobilinogen Urine Norm (Negative); pH Urine 5 (5-7)
[2024-02-11 13:50] LABS: Alanine Aminotransferase 56 U/L (0-41); Albumin Level 4.8 g/dL (3.5-5.2); Alkaline Phosphatase 93 U/L (40-130); Aspartate Amino Transferase 32 U/L (0-40); Blood Urea Nitrogen 11 mg/dL (6-20); Calcium 9.2 mg/dL (8.5-10.5); Carbon Dioxide 26 mmol/L (22-29); Chloride 102 mmol/L (98-107); Globulin 3.1 g/dL (1.3-4.6); Glucose 92 mg/dL (65-115); Lipase 15 U/L (13-60); Osmolality Calculated 287 mOsm/kg (285-295); Sodium 139 mmol/L (136-145); Total Bilirubin 0.3 mg/dL (0.15-1.2); Total Protein 7.9 g/dL (6.6-8.7)
[2024-02-11] MEDS: iohexol 350 mg/mL 500 mL Btl (per mL) IV (13:54)
[2024-02-11 13:58] VITALS: BP 153/97; PULSE 98; O2SAT 98
[2024-02-11 14:55] VITALS: PULSE 96; O2SAT 100
== END 2024-02-11 14:56 | disposition home or self-care (01) ==
PROVIDERS: Emergency Provider Physician Assistant; PCP Nurse Practitioner Family
DX: R10.31 Right lower quadrant pain (principal)
CPT/HCPCS: 74177; 80053; 81003; 83690; 85025; 96374; 96375; 99285; J2270; J2405; J7030; Q9967

== ENCOUNTER 2024-10-09 06:25 | Emergency (ER) | payer OTHER, SELFPAY ==
--- NOTE | 2024-10-09 06:28 | ECG_ITS ---
[facility] Test Date: 2024-10-09 Pat Name: Alvaro Chandra Department: Room: Gender: Male [employer]: : 1995 Requested By: Souleymane Romero Order Number: [id number] Samira MD: Mihir Mares M.D. Measurements Intervals [place] Rate: 103 P: 28 IA: 156 QRS: 73 QRSD: 92 T: 22 QT: 328 QTc: 431 Interpretive Statements SINUS TACHYCARDIA No previous ECG available for comparison Electronically Signed On 10-09-2024 20:05:49 ELECTRICIAN CONSTRUCTOR SUPERVISOR by Mihir Mares M.D. [email or web address]
[2024-10-09 06:40] VITALS: BP 144/107; PULSE 98; RESP 24; TEMP 36.6; O2SAT 100; BMI 41.9
[2024-10-09 06:44] VITALS: BP 144/107; PULSE 90; O2SAT 98
--- NOTE | 2024-10-09 06:57 | ED_ITS ---
HPI - Abdominal Pain 2 General: Chief Complaint: Abdominal Pain Stated Complaint: ABD,SOB,V,D Time Seen by Provider: 10/09/24 06:26 History of Present Illness: 29-year-old male presents emergency room with complaint of abdominal pain. He has left-sided abdominal pain left upper quadrant left flank radiating down. He has had these in the past but never as intense as it is today. He has had several episodes of vomiting and a couple of episodes of diarrhea. Now he is only dry heaving. He denies any hematemesis coffee-ground emesis melena melena or hematochezia. No previous abdominal surgeries. He states that in the past when he lays down it seems to help the pain when he is up and active it seems to make it a little worse. He denies any dysuria urgency or frequency or hematuria no history of cystitis pyelonephritis or nephrolithiasis. Associated Symptoms: Reports diarrhea, nausea and vomiting; Denies chills, coffee ground emesis, dysuria, fever(s), hematochezia and hematemesis Related Data Previous Rx's Medication Instructions Recorded venlafaxine 150 mg 150 mg PO DAILY #30 caps 09/19/24 capsule,extended release 24 hr (Effexor XR) promethazine 25 mg tablet 25 mg PO Q6H PRN nausea and 10/09/24 vomiting #20 tabs Allergies Allergy/AdvReac Type Severity Reaction Status Date / Time No Known Allergies Allergy Verified 10/09/24 06:44 Review of Systems 2 Const: Denies: fever(s) or chills Card: Denies: chest pain Resp: Denies: dyspnea GI: Reports: abdominal pain, nausea, vomiting and diarrhea; Denies: hematemesis, coffee ground emesis or hematochezia : Denies: dysuria, urinary frequency or urinary urgency Musc: Denies: neck pain or back pain Skin/Breast: Denies: rash PFSH ED 2 PFSH: Medical History (Updated 10/09/24 @ 09:33 by Souleymane Solorio DO) Hx of fracture of leg Open reduction internal fixation left distal fibular fracture- 04/16/23 Dr Angelo Depression Family History Denies family history of Anesthesia complication Social History (Reviewed 10/09/24 @ 07:12 by PENNY Davis Smoking and tobacco/nicotine status: never used tobacco/nicotine Second hand smoke exposure: No Alcohol intake: never Substance/Drug Use: never Physical Exam 2 Const: ORIENTATION/CONSCIOUSNESS: Yes awake, Yes oriented to person, Yes oriented to place and Yes oriented to time HENMT: COMMON NORMALS: normocephalic, atraumatic and hearing grossly normal bilaterally HEAD & SCALP: normocephalic and atraumatic Resp: COMMON NORMALS: normal respiratory effort, No retractions, No use of accessory muscles and clear to auscultation bilaterally AUSCULTATION: clear to auscultation bilaterally Cardio: COMMON NORMALS: regular rate, regular rhythm and No murmurs present (Cardio) RATE: regular rate RHYTHM: regular rhythm GI: COMMON NORMALS: No hepatosplenomegaly present AUSCULTATION: Yes normoactive bowel sounds PALPATION: Yes Tenderness to palpation present (GI) (Mild left-sided abdominal pain no guarding no rebound), No Guarding due to palpation present (GI) and Yes No hepatosplenomegaly present : COMMON NORMALS: Yes no CVA tenderness BLADDER/KIDNEY EXAM: Yes no CVA tenderness Back/Pelvis: COMMON NORMALS: no CVA tenderness Extremity: COMMON NORMALS: normal to inspection, capillary refill normal, no clubbing, cyanosis or edema, no calf tenderness and no pedal edema Neuro: SENSORIUM/ORIENTATION: Yes oriented to person, Yes oriented to place and Yes oriented to time Skin: COMMON NORMALS: no rashes or lesions noted GENERAL SKIN EXAM: no rashes or lesions noted Course 2 Vital Signs: Vital signs: Vital Signs Temperature 97.9 F 10/09/24 06:40 Pulse Rate 90 10/09/24 06:44 Respiratory Rate 24 H 10/09/24 06:40 Blood Pressure 144/107 10/09/24 06:44 Pulse Oximetry 98 10/09/24 06:44 Oxygen Delivery Me thod Room Air 10/09/24 06:44 MDM - Abdominal Pain Medical Decision Making Labs and imaging reviewed. Patient has a white count of 20,000 with no finding of specific infection. Discussed with radiologist from [facility] read his films they did think there was some mild increased fluid in his small bowel suggestive of an enteritis this would fit with the diarrhea he has had. On repeat exam patient is actually feeling quite well is not have any specific findings on the abdomen with initial exam or at the time of reevaluation. Will discharge patient home with promethazine to use as needed clear liquid diet for 24 to 48 hours and advance as tolerated Medical Records I reviewed the patient's medical records. Lab Data I reviewed the patient's lab results. 10/09/24 06:51 10/09/24 06:51 Labs/Radiology: Radiology Impressions Abdomen/Pelvis CT 10/09/24 07:08 IMPRESSION: No acute findings. ADDENDUM: 10/09/24931 ADDENDUM: The above findings and impression were discussed with Dr. Solorio on 10/09/2024 at 9:30 a.m. Laboratory Results WBC 20.06 10^3/uL (3.29-11.43) H 10/09/24 06:51 RBC 5.59 10^6/uL (3.85-5.65) 10/09/24 06:51 Hgb 15.60 g/dL (11.27-16.99) 10/09/24 06:51 Hct 46.3 % (37-53) 10/09/24 06:51 MCV 82.8 fl (82-101) 10/09/24 06:51 MCH 27.9 pg (27-33) 10/09/24 06:51 MCHC 33.7 g/dL (30-55) 10/09/24 06:51 RDW 11.9 % (12.1-15.1) L 10/09/24 06:51 Plt Count 320 10^3/cmm (157-399) 10/09/24 06:51 MPV 10.5 fL (7.4-10.4) H 10/09/24 06:51 Neut % (Auto) 86.8 % 10/09/24 06:51 Lymph % (Auto) 5.3 % 10/09/24 06:51 [place] % (Auto) 6.8 % 10/09/24 06:51 Eos % (Auto) 0.5 % 10/09/24 06:51 Baso % (Auto) 0.2 % 10/09/24 06:51 Neut # (Auto) 17.40 10^3/uL (1.8-7.7) H 10/09/24 06:51 Lymph # (Auto) 1.1 10^3/uL (0.8-4.8) 10/09/24 06:51 [place] # (Auto) 1.4 10^3/uL (0.2-0.9) H 10/09/24 06:51 Eos # (Auto) 0.1 10^3/uL (0.0-0.8) 10/09/24 06:51 Baso # (Auto) 0.1 10^3/uL (0.0-0.1) 10/09/24 06:51 Nucleated RBC % (auto) 0 % 10/09/24 06:51 Nucleated RBCs # 0.0 /100WBC 10/09/24 06:51 Sodium 140 mmol/L (136-145) 10/09/24 06:51 Potassium 4.3 mmol/L (3.5-5.1) 10/09/24 06:51 Chloride 102 mmol/L (98-107) 10/09/24 06:51 Carbon Dioxide 21 mmol/L (22-29) L 10/09/24 06:51 Anion Gap 21.3 (5-19) H 10/09/24 06:51 BUN 16 mg/dL (6-20) 10/09/24 06:51 Creatinine 0.8 mg/dL (0.7-1.2) 10/09/24 06:51 GFR Calculation 116.0 mL/min (90-130) 10/09/24 06:51 Glucose 144 mg/dL (65-115) H 10/09/24 06:51 Calculated Osmolality 294 mOsm/kg (285-295) 10/09/24 06:51 Calcium 10.2 mg/dL (8.5-10.5) 10/09/24 06:51 Total Bilirubin 0.5 mg/dL (0.15-1.2) 10/09/24 06:51 AST 24 U/L (0-40) 10/09/24 06:51 ALT 33 U/L (0-41) 10/09/24 06:51 Alkaline Phosphatase 89 U/L (40-130) 10/09/24 06:51 Total Protein 8.3 g/dL (6.6-8.7) 10/09/24 06:51 Albumin 4.9 g/dL (3.5-5.2) 10/09/24 06:51 Globulin 3.4 g/dL (1.3-4.6) 10/09/24 06:51 Lipase 23 U/L (13-60) 10/09/24 06:51 Lipase 23 U/L (13-60) 10/09/24 06:51 Urine Color Yellow (Yellow) 10/09/24 07:09 Urine Appearance Clear (CLEAR) 10/09/24 07:09 Urine pH >=9.0 (5-7) A 10/09/24 07:09 Ur Specific [place] 1.028 (1.005-1.030) 10/09/24 07:09 Urine Protein 1+ (Negative) A 10/09/24 07:09 Urine Glucose (UA) Negative (Normal) 10/09/24 07:09 Urine Ketones 1+ (Negative) H 10/09/24 07:09 Urine Blood Negative (Negative) 10/09/24 07:09 Urine Nitrate Negative (Negative) 10/09/24 07:09 Urine Bilirubin Negative (Negative) 10/09/24 07:09 Urine Urobilinogen 1.0 mg/dL (Negative) 10/09/24 07:09 Ur Leukocyte Esterase Negative (Negative) 10/09/24 07:09 Urine RBC 0-2 /hpf (0-2) 10/09/24 07:09 Urine WBC 0-5 /hpf (0-5) 10/09/24 07:09 Ur Squamous Epith Cells 0-5 /hpf (0-5) 10/09/24 07:09 Amorphous Sediment Not Reportable 10/09/24 07:09 Urine Bacteria None seen /hpf (NONE) 10/09/24 07:09 Hyaline Casts 1.65 /lpf 10/09/24 07:09 All radiology interpretation(s) finalized by discharge Discharge Plan Discharge Patient Disposition: Home Clinical Impression: Gastroenteritis Condition: Stable Prescriptions: New promethazine 25 mg tablet 25 mg PO Q6H PRN (Reason: nausea and vomiting) Qty: 20 0RF No Action venlafaxine [Effexor XR] 150 mg capsule,extended release 24hr 150 mg PO DAILY Qty: 30 3RF Rx Instructions: take with supper Discharge Orders: Discharge ED (Routine); Ordered 10/09/24 Ordered By: Souleymane Solorio Referrals: Hurley,Gaye, MUD CLEANER OPERATOR [Primary Care Provider] - Patient Instructions: Opioid Safety, Pain Management Activity Restrictions/Additional Instructions: Thank you for choosing [facility] for your healthcare needs today. It is very important that you follow up as instructed or that you return to the Emergency Department should you have concerns or if your condition changes or worsens in any way. You are seen in the emergency room with a complaint of abdominal pain. Your white count was elevated however all of your other testing was relatively within normal limits CT did not show any acute pathology there is increased fluid in the bowel without bowel wall thickening this is likely from a gastroenteritis which is what is most likely causing your diarrhea symptoms. Recommend clear liquid diet you can use antiemetics (nausea medicines promethazine prescribed) as needed. Advance your diet as tolerated. Coding Level of Care Code ED Complaint Evaluation Officer for Arleen Boyd
[2024-10-09 07:01] LABS: Basophils # 0.1 10^3/uL (0.0-0.1); Basophils % 0.2 %; Eosinophils # 0.1 10^3/uL (0.0-0.8); Eosinophils % 0.5 %; Hematocrit 46.3 % (37-53); Lymphocytes # 1.1 10^3/uL (0.8-4.8); Lymphocytes % 5.3 %; Mean Corpuscular HGB Conc 33.7 g/dL (30-55); Mean Corpuscular Hemoglobin 27.9 pg (27-33); Mean Corpuscular Volume 82.8 fl (82-101); Mean Platelet Volume 10.5 fL (7.4-10.4); Monocytes # 1.4 10^3/uL (0.2-0.9); Monocytes % 6.8 %; Neutrophils % 86.8 %; Nucleated Red Blood Cells % 0 %; Platelet Count 320 10^3/cmm (157-399); Red Blood Count 5.59 10^6/uL (3.85-5.65); Red Cell Distribution Width 11.9 % (12.1-15.1); White Blood Count 20.06 10^3/uL (3.29-11.43)
--- NOTE | 2024-10-09 07:08 | CTR_ITS ---
PROCEDURE INFORMATION: Exam: CT Abdomen And Pelvis With Contrast Exam date and time: 10/09/2024 7:26 AM Age: 29 years old Clinical indication: Abdominal pain; Generalized; Patient HX: N/v x yesterday. Weakness, syncope; Additional info: Abd pain TECHNIQUE: Imaging protocol: Computed tomography of the abdomen and pelvis with contrast. Radiation optimization: All CT scans at this facility use at least one of these dose optimization techniques: automated exposure control; mA and/or kV adjustment per patient size (includes targeted exams where dose is matched to clinical indication); or iterative reconstruction. Contrast material: OMNI 350; Contrast volume: 100 ml; Contrast route: INTRAVENOUS (IV); COMPARISON: CT abdomen pelvis w con* [id number] 02/11/2024 1:53 PM RADIATION DOSE METRICS: Total DLP (mGy-cm): 1060.03 FINDINGS: Lungs: Lung bases are clear as visualized. Heart: Base of heart is unremarkable as visualized. Liver: Normal. No mass. Gallbladder and biliary ducts: Normal. No calcified stones. No ductal dilation. Pancreas: Normal. No ductal dilation. Spleen: Normal. No splenomegaly. Adrenal glands: Normal. No mass. Kidneys and ureters: Normal. No hydronephrosis. Stomach and bowel: Unremarkable. No obstruction. No mucosal thickening. Appendix: No evidence of appendicitis. Intraperitoneal space: Unremarkable. No free air. No significant fluid collection. Vasculature: Unremarkable. No abdominal aortic aneurysm. Lymph nodes: Unremarkable. No enlarged lymph nodes. Urinary bladder: Unremarkable as visualized. Reproductive: Unremarkable as visualized. Bones/joints: Unremarkable. No acute fracture. Soft tissues: Unremarkable. CT/CT abdomen pelvis w con* [id number] IMPRESSION: No acute findings.
[2024-10-09 07:13] LABS: Bilirubin Urine Negative (Negative); Blood Urine Negative (Negative); Glucose Urine UA Negative (Normal); Ketones Urine 1+ (Negative); Leukocyte Esterase Urine Negative (Negative); Nitrate Urine Negative (Negative); Protein Urine 1+ (Negative); Specific Gravity, Urine 1.028 (1.005-1.030); Urine Appearance Clear (CLEAR); Urine Color Yellow (Yellow); pH Urine >=9.0 (5-7)
[2024-10-09 07:18] LABS: Add Urine Microscopic? YES; Bacteria Urine None Seen /hpf; Hyaline Casts Urine 1.65 /lpf; RBC Urine 0-2 /hpf (0-2); Squamous Epithelial Cell Urine 0-5 /hpf (0-5); WBC Urine 0-5 /hpf (0-5)
[2024-10-09 07:20] LABS: Alanine Aminotransferase 33 U/L (0-41); Albumin Level 4.9 g/dL (3.5-5.2); Alkaline Phosphatase 89 U/L (40-130); Anion Gap 21.3 (5-19); Aspartate Amino Transferase 24 U/L (0-40); Blood Urea Nitrogen 16 mg/dL (6-20); Calcium 10.2 mg/dL (8.5-10.5); Carbon Dioxide 21 mmol/L (22-29); Chloride 102 mmol/L (98-107); Creatinine Clr Calc Pharmacy 167.6433; Globulin 3.4 g/dL (1.3-4.6); Glucose 144 mg/dL (65-115); Lipase 23 U/L (13-60); Osmolality Calculated 294 mOsm/kg (285-295); Potassium 4.3 mmol/L (3.5-5.1); Sodium 140 mmol/L (136-145); Total Bilirubin 0.5 mg/dL (0.15-1.2); Total Protein 8.3 g/dL (6.6-8.7)
[2024-10-09 07:24] LABS: Add Urine Culture? No
[2024-10-09] MEDS: iohexol 350 mg/mL 500 mL Btl (per mL) IV (07:28)
[2024-10-09] MEDS: ketorolac 30 mg/mL INJ IVP (08:06)
[2024-10-09] MEDS: prochlorperazine 10 mg/2 mL Inj IVP (08:06)
[2024-10-09 09:39] VITALS: BP 140/88; PULSE 105; O2SAT 94
[2024-10-09 09:53] LABS: Lipase 23 U/L (13-60)
[2024-10-09 10:12] VITALS: BP 143/87; PULSE 127; O2SAT 97
[2024-10-09 10:13] VITALS: BP 143/87; PULSE 127; O2SAT 97
[2024-10-09 11:11] LABS: Covid PCR NEGATIVE (Negative); Influenza A NEGATIVE (Negative); Influenza B NEGATIVE (Negative); Respiratory Syncytial Virus Ce NEGATIVE (Negative)
== END 2024-10-09 10:13 | disposition home or self-care (01) ==
PROVIDERS: Emergency Provider Family Medicine; PCP Nurse Practitioner Family
DX: K52.9 Noninfective gastroenteritis and colitis, unspecified (principal)
CPT/HCPCS: 0241U; 74177; 80053; 81001; 83690; 85025; 93005; 96374; 96375; 99285; J0780; J1885

== ENCOUNTER → 2024-12-31 15:42 | Outpatient (BNVA) | payer OTHER, SELFPAY | PROVIDERS: PCP Nurse Practitioner Family; Visit Provider Registered Nurse Neonatal Intensive Care | DX: B34.9 Viral infection, unspecified (principal); J06.9 Acute upper respiratory infection, unspecified | CPT/HCPCS: 87420 ==

== ENCOUNTER 2025-04-15 13:00 | Emergency (ER) | payer OTHER, SELFPAY ==
--- OUTSIDE RECORDS SUMMARY | 2025-04-15 13:05 | XMS_ITS | Clinical Summary ---
Author Organization [facility] [address] [place] [address] Care Team Providers Care Dye Beck Reel Operator Name Role Phone Unavailable Primary Care Provider Unavailabl e Encounters Date Type Department Care Team Description 01/16/2025 External Device Data [facility] ABSTRACTION Provider, Abstract from Last 3 Months Immunizations Immunization Administration Dates Next Due (M-M-R II/PRIORIX)(12 MO UP) MEASLES, MUMPS AND RUBELLA VIRUS VACCINE, 0.5 ML IM/SUBCUT 05/31/2002,08/14/1998 (VARIVAX)(12 MOS UP)VARICELL A VIRUS VACCINE (PF) 0.5 ML, SUB CUT 05/31/2002 Dt Dtp Dtap Vaccine 05/31/2002, 9,08/14/1998,1997,1997 HIB, Unspecified Formulation 08/14/1998,02/28/19 98,1997 Hepatitis B Vaccine 02/12/1998,1997,1996 IPV/OPV 05/31/2002, 9,02/28/1998,1997 Social History Tobacco Use Types Packs/Day Years Used Date Smoking Tobacco: Never Assessed Sex and Gender Information Value Date Recorded Sex Assigned at Not on file 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
--- OUTSIDE RECORDS SUMMARY | 2025-04-15 13:05 | XMS_ITS | Encounter Summary ---
Author Organization [facility] Address 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
[2025-04-15 13:23] VITALS: BP 119/84; PULSE 102; TEMP 37.3; O2SAT 98; BMI 42.3
[2025-04-15 13:45] LABS: Basophils # 0.1 10^3/uL (0.0-0.1); Basophils % 0.5 %; Eosinophils % 0.2 %; Hematocrit 44.1 % (37-53); Lymphocytes # 5.6 10^3/uL (0.8-4.8); Lymphocytes % 36.3 %; Mean Corpuscular HGB Conc 33.8 g/dL (30-55); Mean Corpuscular Hemoglobin 27.9 pg (27-33); Mean Corpuscular Volume 82.6 fl (82-101); Mean Platelet Volume 9.9 fL (7.4-10.4); Monocytes # 1.1 10^3/uL (0.2-0.9); Neutrophils # 8.61 10^3/uL (1.8-7.7); Neutrophils % 55.7 %; Nucleated Red Blood Cells % 0 %; Platelet Count 263 10^3/cmm (157-399); Red Blood Count 5.34 10^6/uL (3.85-5.65); Red Cell Distribution Width 12.1 % (12.1-15.1); White Blood Count 15.44 10^3/uL (3.29-11.43)
[2025-04-15 14:01] LABS: Slide Review Slide Review Perform
[2025-04-15 14:20] LABS: Alanine Aminotransferase 60 U/L (0-41); Albumin Level 4.4 g/dL (3.5-5.2); Alkaline Phosphatase 97 U/L (40-130); Anion Gap 18.1 (5-19); Aspartate Amino Transferase 31 U/L (0-40); Blood Urea Nitrogen 13 mg/dL (6-20); Calcium 9.5 mg/dL (8.5-10.5); Carbon Dioxide 21 mmol/L (22-29); Chloride 100 mmol/L (98-107); Globulin 3.4 g/dL (1.3-4.6); Glomerular Filtration Rate 101.2 mL/min (90-130); Glucose 89 mg/dL (65-115); Lipase 20 U/L (13-60); Osmolality Calculated 280 mOsm/kg (285-295); Potassium 4.1 mmol/L (3.5-5.1); Sodium 135 mmol/L (136-145); Total Bilirubin 0.5 mg/dL (0.15-1.2); Total Protein 7.8 g/dL (6.6-8.7)
--- NOTE | 2025-04-15 14:29 | CTR_ITS ---
PROCEDURE INFORMATION: Exam: CT Abdomen And Pelvis With Contrast Exam date and time: 04/15/2025 3:20 PM Age: 29 years old Clinical indication: Abdominal pain; Additional info: Abd pain TECHNIQUE: Imaging protocol: Computed tomography of the abdomen and pelvis with contrast. Radiation optimization: All CT scans at this facility use at least one of these dose optimization techniques: automated exposure control; mA and/or kV adjustment per patient size (includes targeted exams where dose is matched to clinical indication); or iterative reconstruction. Contrast material: OMNI 350; Contrast volume: 100 ml; Contrast route: INTRAVENOUS (IV); COMPARISON: CT abdomen pelvis w con* [id number] 10/09/2024 7:26 AM RADIATION DOSE METRICS: Total DLP (mGy-cm): 1141.73 FINDINGS: Lungs: Lung bases are clear. Liver: The liver is normal. Gallbladder and biliary ducts: The gallbladder is normal. There is no biliary dilation. Pancreas: The pancreas is unremarkable. Spleen: The spleen is unremarkable. Adrenal glands: The adrenal glands are unremarkable. Kidneys and ureters: The kidneys are unremarkable. No hydronephrosis or stones. No ureteral dilation. Stomach and bowel: The stomach is nondistended, limiting assessment of wall thickness. The small bowel is nondilated. There is mild fluid distension and mucosal hyperemia and thickening in the ascending colon to the level of the mid transverse colon. The distal portion of the colon is normal. Appendix: The appendix is normal. Intraperitoneal space: There is no free air or significant intraperitoneal free fluid. No associated mesenteric edema. Vasculature: The aorta is unremarkable. There is no aneurysm. The portal, splenic and superior mesenteric veins are patent. Lymph nodes: No retroperitoneal, pelvic or inguinal lymphadenopathy. No olesya hepatis lymphadenopathy. There are mildly prominent clustered mesenteric lymph nodes in the right mid abdomen measuring up to 7 mm short axis. Urinary bladder: The urinary bladder is unremarkable. Reproductive: The prostate and seminal vesicles are unremarkable. Bones/joints: Bones are unremarkable. Soft tissues: The abdominal wall is intact. CT/CT abdomen pelvis w con* [id number] IMPRESSION: 1. Mild fluid distension and mucosal hyperemia in the ascending and proximal transverse colon. Question mild colitis. 2. Prominent right mid abdominal mesenteric lymph nodes are increased in size since 10/09/2024. Possible reactive lymph nodes versus mesenteric adenitis.
--- NOTE | 2025-04-15 14:30 | XRR_ITS ---
PROCEDURE INFORMATION: Exam: XR Chest Exam date and time: 04/15/2025 2:51 PM Age: 29 years old Clinical indication: Fever TECHNIQUE: Imaging protocol: Radiologic exam of the chest. Views: 1 view. COMPARISON: CR XR chest 1V [id number] 05/09/2023 11:57 PM FINDINGS: Lungs: Lungs are clear. Pleural spaces: There is no pleural effusion or pneumothorax. Heart/Mediastinum: Cardiomediastinal contours are unremarkable. Bones/joints: Bones are unremarkable. XR/XR chest 1V portable [id number] IMPRESSION: No acute findings.
--- NOTE | 2025-04-15 14:30 | ED_ITS ---
HPI - Abdominal Pain 2 General: Chief Complaint: Abdominal Pain Stated Complaint: Fever / NVD / Abd pain Time Seen by Provider: 04/15/25 14:16 Source: patient Mode of arrival: ambulatory Limitations: no limitations History of Present Illness: 29-year-old male states that over the la st 2 days he has been having cough congestion fevers as well as abdominal pain. He has had some nausea denies any vomiting. States pain is suprapubic and right lower quadrant radiates to his back. He is tested for COVID today and it was negative denies any shortness of breath. Associated Symptoms: Reports chills, fever(s) and nausea; Denies diarrhea, dysuria and vomiting Related Data Previous Rx's ?Medication ?Instructions ?Recorded venlafaxine 150 mg 150 mg PO DAILY #30 caps 12/12 capsule,extended release 24 hr (Effexor XR) ciprofloxacin HCl 500 mg tablet 500 mg PO BID #14 tabs 04/15/25 (Cipro) hydrocodone 5 mg-acetaminophen 325 1 tab PO Q6H PRN pa in #14 tabs 04/15/25 mg tablet metronidazole 500 mg tablet 500 mg PO Q8H 7 days #21 t abs 04/15/25 ondansetron 4 mg disintegrating 4 mg PO Q6H PRN nausea and 04/15/25 tablet vomiting #14 tabs Allergies Allergy/AdvReac Type Severity Reaction Status Date / Time No Known Allergies Allergy Verified 04/15/25 13:28 Review of Systems 2 Const: Reports: fever(s) and chills; Denies: body aches or change in appetite ENMT: Denies: throat pain or dental pain Card: Denies: chest pain Resp: Reports: non-productive cough; Denies: dyspnea GI: Reports: abdominal pain and nausea; Denies: vomiting or diarrhea : Denies: dysuria Musc: Denies: neck pain or back pain Skin/Breast: Denies: rash Neuro: Denies: headache(s) PFSH ED 2 PFSH: Medical History Hx of fracture of leg Open reduction internal fixation left distal fibular fracture- 04/16/23 Dr Angelo Depression Family History Denies family history of Anesthesia complication Social History Smoking and tobacco/nicotine status: never used tobacco/nicotine Second hand smoke exposure: No Alcohol intake: never Substance/Drug Use: never Physical Exam 2 Const: COMMON NORMALS: no acute distress, patient oriented x3 and healthy appearing HENMT: COMMON NORMALS: normocephalic and atraumatic HEAD & SCALP: n ormocephalic and atraumatic Eye: COMMON NORMALS: conjunctivae normal CONJUNCTIVA: Yes conjunctivae normal Neck/C-Spine: COMMON NORMALS: full ROM and supple Chest: COMMONS NORMALS: normal inspection of the chest Resp: COMMON NORMALS: normal respiratory effort, No retractions, No use of accessory muscles and clear to auscultation bilaterally AUSCULTATION: clear to auscultation bilaterally Cardio: COMMON NORMALS: regular rate, regular rhythm and No murmurs present (Cardio) RATE: regular rate RHYTHM: regular rhythm GI: COMMON NORMALS: Normal to inspection, nondistended, normoactive bowel sounds present, Soft to palpation and no masses PALPATION: Yes Soft to palpation and Yes Tenderness to palpation present (GI) Details: RLQ Extremity: COMMON NORMALS: normal to inspection and full ROM Neuro: COMMON NORMALS: patient oriented x3, moves all extremities and no focal motor deficits Psych: COMMON NORMALS: mental status grossly normal, Normal thought process present and cooperative THOUGHT PROCESS: Normal thought process present Skin: COMMON NORMALS: no rashes or lesions noted and no wounds GENERAL SKIN EXAM: no rashes or lesions noted Course 2 Vital Signs: Vital signs: Vital Signs Temperature 99.2 F 04/15/25 13:23 Pulse Rate 102 H 04/15/25 13:23 Blood Pressure 119/84 04/15/25 13:23 Pulse Oximetry 98 04/15/25 13:23 Oxygen Delivery Me thod Room Air 04/15/25 13:23 MDM - Abdominal Pain Medical Decision Making Patient presents with abdominal pain he feels improved here CT shows a colitis we will start him on Cipro and Flagyl he is to follow-up his PCP return if worsening he understands agrees to plan. Medical Records I reviewed the patient's medical records. Lab Data I reviewed the patient's lab results. 04/15/25 13:36 04/15/25 13:36 Labs/Radiology: Radiology Impressions Abdomen/Pelvis CT 04/15/25 14:29 IMPRESSION: 1. Mild fluid distension and mucosal hyperemia in the ascending and proximal transverse colon. Question mild colitis. 2. Prominent right mid abdominal mesenteric lymph nodes are increased in size since 10/09/2024. Possible reactive lymph nodes versus mesenteric adenitis. Chest X-Ray 04/15/25 14:30 IMPRESSION: No acute findings. Laboratory Results WBC 15.44 10^3/uL (3.29-11.43) H 04/15/25 13:36 RBC 5.34 10^6/uL (3.85-5.65) 04/15/25 13:36 Hgb 14.90 g/dL (11.27-16.99) 04/15/25 13:36 Hct 44.1 % (37-53) 04/15/25 13:36 MCV 82.6 fl (82-101) 04/15/25 13:36 MCH 27.9 pg (27-33) 04/15/25 13:36 MCHC 33.8 g/dL (30-55) 04/15/25 13:36 RDW 12.1 % (12.1-15.1) 04/15/25 13:36 Plt Count 263 10^3/cmm (157-399) 04/15/25 13:36 MPV 9.9 fL (7.4-10.4) 04/15/25 13:36 Neut % (Auto) 55.7 % 04/15/25 13:36 Lymph % (Auto) 36.3 % 04/15/25 13:36 [place] % (Auto) 7.0 % 04/15/25 13:36 Eos % (Auto) 0.2 % 04/15/25 13:36 Baso % (Auto) 0.5 % 04/15/25 13:36 Neut # (Auto) 8.61 10^3/uL (1.8-7.7) H 04/15/25 13:36 Lymph # (Auto) 5.6 10^3/uL (0.8-4.8) H 04/15/25 13:36 [place] # (Auto) 1.1 10^3/uL (0.2-0.9) H 04/15/25 13:36 Eos # (Auto) 0.0 10^3/uL (0.0-0.8) 04/15/25 13:36 Baso # (Auto) 0.1 10^3/uL (0.0-0.1) 04/15/25 13:36 Nucleated RBC % (auto) 0 % 04/15/25 13:36 Nucleated RBCs # 0.0 /100WBC 04/15/25 13:36 Sodium 135 mmol/L (136-145) L 04/15/25 13:36 Potassium 4.1 mmol/L (3.5-5.1) 04/15/25 13:36 Chloride 100 mmol/L (98-107) 04/15/25 13:36 Carbon Dioxide 21 mmol/L (22-29) L 04/15/25 13:36 Anion Gap 18.1 (5-19) 04/15/25 13:36 BUN 13 mg/dL (6-20) 04/15/25 13:36 Creatinine 0.9 mg/dL (0.7-1.2) 04/15/25 13:36 GFR Calculation 101.2 mL/min (90-130) 04/15/25 13:36 Glucose 89 mg/dL (65-115) 04/15/25 13:36 Calculated Osmolality 280 mOsm/kg (285-295) L 04/15/25 13:36 Calcium 9.5 mg/dL (8.5-10.5) 04/15/25 13:36 Total Bilirubin 0.5 mg/dL (0.15-1.2) 04/15/25 13:36 AST 31 U/L (0-40) 04/15/25 13:36 ALT 60 U/L (0-41) H 04/15/25 13:36 Alkaline Phosphatase 97 U/L (40-130) 04/15/25 13:36 Total Protein 7.8 g/dL (6.6-8.7) 04/15/25 13:36 Albumin 4.4 g/dL (3.5-5.2) 04/15/25 13:36 Globulin 3.4 g/dL (1.3-4.6) 04/15/25 13:36 Lipase 20 U/L (13-60) 04/15/25 13:36 Amorphous Sediment Not Reportable 04/15/25 14:00 All radiology interpretation(s) finalized by discharge Discharge Plan Discharge Patient Disposition: Home Clinical Impression: Abdominal pain, Colitis Condition: Stable Prescriptions: New hydrocodone-acetaminophen 5-325 mg tablet 1 tab PO Q6H PRN (Reason: pain) Qty: 14 0RF metronidazole 500 mg tablet 500 mg PO Q8H 7 Days Qty: 21 0RF ciprofloxacin HCl [Cipro] 500 mg tablet 500 mg PO BID Qty: 14 0RF ondansetron 4 mg tablet,disintegrating 4 mg PO Q6H PRN (Reason: nausea and vomiting) Qty: 14 0RF No Action venlafaxine [Effexor XR] 150 mg capsule,extended release 24hr 150 mg PO DAILY Qty: 30 3RF Rx Instructions: take with supper Discharge Orders: Discharge ED (Routine); Ordered 04/15/25 Ordered By: Joshua Amaya Referrals: Hurley,Gaye, WEB SITE ADMIN [Primary Care Provider, Nurse Practitioner] - 4-7 days Discharge Diet: Advance as tolerated Discharge Activity: Resume usual activity Patient Instructions: Abdominal Pain (ED), Colitis (ED), Opioid Safety Print Language: French Coding Level of Care Code ED Application Security Engineer for Arleen Boyd
[2025-04-15] MEDS: sodium chloride 0.9% 1,000 ML 999 ML IV (15:11)
[2025-04-15] MEDS: ondansetron 2 mg/ML SDV 2 mL 4 MG IVP (15:11)
[2025-04-15] MEDS: morphine 4 mg/mL SDV 1 mL IVP (15:11)
[2025-04-15 16:10] LABS: Bilirubin Urine Negative (Negative); Blood Urine Negative (Negative); Glucose Urine UA Negative (Normal); Ketones Urine 2+ (Negative); Leukocyte Esterase Urine Negative (Negative); Nitrate Urine Negative (Negative); Protein Urine 1+ (Negative); Urine Appearance Clear (CLEAR); Urine Color Yellow (Yellow); pH Urine 5.5 (5-7)
[2025-04-15 16:15] LABS: Add Urine Microscopic? YES; Bacteria Urine None Seen /hpf; Hyaline Casts Urine 0.81 /lpf; RBC Urine 0-2 /hpf (0-2); Squamous Epithelial Cell Urine 0-5 /hpf (0-5); WBC Urine 0-5 /hpf (0-5)
[2025-04-15 16:17] LABS: Specific Gravity, Urine 1.033 (1.005-1.030)
[2025-04-15] MEDS: ciprofloxacin 500 mg Tablet PO (17:10)
[2025-04-15] MEDS: metroNIDAZOLE 500 MG Tablet PO (17:11)
[2025-04-15 17:19] VITALS: BP 126/74; PULSE 100; O2SAT 95
== END 2025-04-15 17:20 | disposition home or self-care (01) ==
PROVIDERS: Emergency Provider Emergency Medicine; PCP Nurse Practitioner Family
DX: R10.9 Unspecified abdominal pain (principal); K52.9 Noninfective gastroenteritis and colitis, unspecified
CPT/HCPCS: 71045; 74177; 80053; 81000; 81001; 83690; 85025; 87071; 87426; 87880; 96361; 96374; 96375; 99285; J2270; J2405; J7030; J9999

== ENCOUNTER → 2025-04-26 13:44 | Outpatient (BNVA) | payer OTHER, SELFPAY | PROVIDERS: PCP Family Medicine; Visit Provider Family Medicine | DX: K52.9 Noninfective gastroenteritis and colitis, unspecified (principal) | CPT/HCPCS: 82785; 86001; 86003; 86008 ==

== ENCOUNTER 2025-05-23 08:19 | Day surgery (SDC) | payer OTHER, SELFPAY ==
[2025-05-23 08:36] VITALS: BP 139/81; PULSE 86; RESP 18; TEMP 36.3; O2SAT 86; BMI 41.9
--- NOTE | 2025-05-23 09:01 | W.PM.OPSUD ---
Surgery/Procedure H&P Update DATE OF PROCEDURE: May 23, 2025 DATE H&P PERFORMED: 05/02/25 H&P UPDATE INFORMATION: I have reviewed H&P completed within last 30 days, I have examined patient prior to procedure, No changes to prior documentation, Changes to prior documentation as noted here and Risks and benefits of the procedure reviewed PLANNED PROCEDURE: Operation Date: 05/23/25 09:55 Proposed Procedures p EGD with Biopsy [id number] G0105, K52.9 R10.9(Not Applicable) - Papi Zhu MD s Colonoscopy(Not Applicable) - Papi Zhu MD
--- NOTE | 2025-05-23 10:00 | ANES.PREANE2 ---
Pre-Anesthetic Assessment Height/Weight: Height 1.68 m Weight 117.934 kg Temp Pulse Resp BP Pulse Ox O2 Del Method 97.2 F L 81 16 132/86 95 Room Air 05/23/25 10:39 05/23/25 10:50 05/23/25 10:50 05/23/25 10:50 05/23/25 10:50 05/23/25 10:50 Operation Date: 05/23/25 09:55 Proposed Procedures p EGD with Biopsy [id number] G0105, K52.9 R10.9(Not Applicable) - Papi Zhu MD s Colonoscopy(Not Applicable) - Papi Zhu MD Familial anesthetic complications: none Was Beta Mojgan taken within 24 hours: N/A Was Clonidine taken within 24 hours: N/A Last intake: Intake Last Liquid Date 05/22/25 Last Liquid Time 20:00 Last Solid Date 05/21/25 Last Solid Time 18:00 Social No alcohol and No tobacco Exam alert, oriented x 3 and clear to auscultation bilaterally Airway Mallampati: Class II Dentition: full History/ROS No significant history except as noted Pulmonary None reported CV/HEM None reported None reported Hepatic None reported GI diarrhea Metabolic None reported Musc/skel None reported Neuropsych None reported Anesthetic Plan ASA status: 1 Anesthesia: MAC Risk of > 500 ml blood loss (7ml/kg in children): No Medications/Allergies Home Medications ?Medication ?Instructions ?Recorded ?Confirmed ?Last Taken ?Type pantoprazole 40 mg tablet,delayed 40 mg PO DAILY 1 month #30 tabs 05/23/25 Unknown Rx release Allergies Allergy/AdvReac Type Severity Reaction Status Date / Time No Known Allergies Allergy Verified 05/21/25 08:26 Current Medications Generic Name Dose Route Start Last Admin Trade Name Freq PRN Reason Stop Dose Admin Sodium Chloride 1,000 mls @ 15 mls/hr 05/23/25 08:23 05/23/25 08:45 Sodium Chloride 0.9% IV 05/24/25 08:22 15 mls/hr .Q24H PRN Administration COLONOSCOPY FLUIDS PFSH Anesthesia Medical History Hx of fracture of leg Open reduction internal fixation left distal fibular fracture- 04/16/23 Dr Angelo Depression Stopped taking Effexor 6-7 months ago. Family History Denies family history of Anesthesia complication Social History Smoking and tobacco/nicotine status: never used tobacco/nicotine Second hand smoke exposure: No Alcohol intake: never Substance/Drug Use: never Data Anesthesia Microbiology 05/23/25 08:45 Stool Lactoferrin - Final Stool
[2025-05-23 10:39] VITALS: BP 108/86; PULSE 88; RESP 16; TEMP 36.2; O2SAT 96
[2025-05-23 10:50] VITALS: BP 132/86; PULSE 81; RESP 16; O2SAT 95
[2025-05-23 11:00] VITALS: BP 120/63; PULSE 69; RESP 18; O2SAT 98
--- NOTE | 2025-05-23 11:20 | ANE.PACU2 ---
Inpatient post-anesthesia follow up: Airway intact: Yes Vital signs: Temperature 97.2 F Pulse Rate 69 Respiratory Rate 18 Blood Pressure 120/63 Pulse Oximetry 98 Oxygen Delivery Me thod Room Air Oxygen Flow Rate Fraction of Inspir ed Oxygen Hydration adequate: Yes Nausea and vomiting: No Pain level: 1 Mental status: Baseline
== END 2025-05-23 11:21 | disposition home or self-care (01) ==
PROVIDERS: PCP Family Medicine; Visit Provider Surgery
PROC: 0DJ08ZZ Inspection of Upper Intestinal Tract, Via Natural or Artificial Opening Endoscopic (ICD-10-PCS; principal; 2025-05-23 09:55)
PROC: 0DJD8ZZ Inspection of Lower Intestinal Tract, Via Natural or Artificial Opening Endoscopic (ICD-10-PCS; CPT 45378; 2025-05-23 09:55)
DX: K52.9 Noninfective gastroenteritis and colitis, unspecified (principal); K21.00 Gastro-esophageal reflux disease with esophagitis, without bleeding; K29.80 Duodenitis without bleeding; K29.50 Unspecified chronic gastritis without bleeding; F32.A Depression, unspecified
CPT/HCPCS: 43239; 45380; 83630; 83993; 87177; 87209; 88305; 88342; J3490; J7030; J9999

== ENCOUNTER 2025-05-25 14:10 | Emergency (ER) | payer OTHER, SELFPAY ==
[2025-05-25 14:13] VITALS: BP 123/78; PULSE 61; RESP 16; TEMP 36.4; O2SAT 97; BMI 41.3
--- OUTSIDE RECORDS SUMMARY | 2025-05-25 14:13 | XMS_ITS | Encounter Summary ---
Author Organization [facility] Address 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
--- OUTSIDE RECORDS SUMMARY | 2025-05-25 14:13 | XMS_ITS | Clinical Summary ---
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
[2025-05-25 15:10] LABS: Hematocrit 41.5 % (37-53); Hemoglobin 13.90 g/dL (11.27-16.99); Mean Corpuscular HGB Conc 33.5 g/dL (30-55); Mean Corpuscular Hemoglobin 27.8 pg (27-33); Mean Corpuscular Volume 83.0 fl (82-101); Nucleated Red Blood Cells % 0 %; Platelet Count 262 10^3/cmm (157-399); Red Blood Count 5.00 10^6/uL (3.85-5.65); White Blood Count 9.10 10^3/uL (3.29-11.43)
[2025-05-25 15:32] LABS: Alanine Aminotransferase 45 U/L (0-41); Albumin Level 4.3 g/dL (3.5-5.2); Alkaline Phosphatase 81 U/L (40-130); Anion Gap 16.4 (5-19); Aspartate Amino Transferase 24 U/L (0-40); Blood Urea Nitrogen 11 mg/dL (6-20); Calcium 9.3 mg/dL (8.5-10.5); Carbon Dioxide 23 mmol/L (22-29); Chloride 105 mmol/L (98-107); Creatinine Clr Calc Pharmacy 166.2199; Globulin 3.4 g/dL (1.3-4.6); Glucose 88 mg/dL (65-115); Lipase 25 U/L (13-60); Osmolality Calculated 289 mOsm/kg (285-295); Potassium 4.4 mmol/L (3.5-5.1); Sodium 140 mmol/L (136-145); Total Protein 7.7 g/dL (6.6-8.7)
--- NOTE | 2025-05-25 15:32 | ED_ITS ---
HPI - GI Bleed 2 General: Chief complaint: GI Bleed Stated complaint: abd pain (sent by evonne) Time Seen by Provider: 05/25/25 15:16 Source: patient Mode of arrival: ambulatory Limitations: no limitations History of Present Illness: Patient is a 29-year-old male presents to ED today along with his significant other for concerns of bright red blood per rectum. He states he underwent EGD/colonoscopy by Dr. Zhu for some chronic GI issues he has been having. States he did take several biopsies. Follow up plan is in two weeks. States he had a normal BM yesterday. Today he has had a BM but noticed a small amount of bright red blood on toilet paper when wiping. Had a few more episodes where he would go to the bathroom and wipe and noticed small amounts (less than a teaspoon) or bright red blood. He does have some mild abdominal bloating/cramping but that is not overly unusual as he has recently been diagnosed with Alpha Gal among several other food allergies. He appears in NAD upon arrival with stable vitals. complaint: blood on toilet paper Onset (ago): hour(s) Severity: mild Relieving factors: none Exacerbating factors: none Context: other (recent EGD/colonoscopy) Associated symptoms: Reports abdominal pain (somewhat chronic for patient); Denies chills, fever(s), headache(s), malaise, rash or vomiting Treatments Prior to Arrival: none Related Data Previous Rx's ?Medication ?Instructions ?Recorded pantoprazole 40 mg tablet,delayed 40 mg PO DAILY 1 wed #30 tabs 05/23/25 release Allergies Allergy/AdvReac Type Severity Reaction Status Date / Time Alpha-Gal Allergy Unknown Verified 05/25/25 14:19 (Hswvujoes-Hilpx-2,3-Gala Review of Systems 2 Const: Denies: fever(s), chills, body aches, fatigue or malaise Card: Denies: chest pain Resp: Denies: dyspnea GI: Reports: abdominal pain (somewhat chronic for patient), bloating and GI cramping; Denies: vomiting, diarrhea, constipation, rectal pain, melena or mucus in stool : Denies: flank pain, dysuria or hematuria Musc: Denies: neck pain, back pain, extremity pain or joint swelling Skin/Breast: Denies: rash Neuro: Denies: headache(s) or dizziness PFSH ED 2 PFSH: Medical History Hx of fracture of leg Open reduction internal fixation left distal fibular fracture- 04/16/23 Dr Angelo Depression Stopped taking Effexor 6-7 months ago. Family History Denies family history of Anesthesia complication Social History Smoking and tobacco/nicotine status: never used tobacco/nicotine Second hand smoke exposure: No Alcohol intake: never Substance/Drug Use: never Physical Exam 2 Const: COMMON NORMALS: no acute distress, average body habitus, patient oriented x3, no limitations, healthy appearing, alert and well nourished G ENERAL APPEARANCE: cooperative ORIENTATION/CONSCIOUSNESS: Yes awake, Yes oriented to person, Yes oriented to place and Yes oriented to time Resp: COMMON NORMALS: normal respiratory effort and clear to auscultation bilaterally AUSCULTATION: clear to auscultation bilaterally Cardio: COMMON NORMALS: regular rate and regular rhythm RATE: regular rate RHYTHM: regular rhythm GI: COMMON NORMALS: Normal to inspection, nondistended, normoactive bowel sounds present, Soft to palpation, non-tender, No hepatosplenomegaly present and no masses INSPECTION: Yes normal to inspection PALPATION: Yes Soft to palpation, Yes Tenderness to palpation present (GI) (mild diffuse-non surgical examination), No Guarding due to palpation present (GI), No Rigid due to palpation and Yes No hepatosplenomegaly present Neuro: COMMON NORMALS: patient oriented x3 SENSORIUM/ORIENTATION: Yes alert, Yes oriented to person, Yes oriented to place and Yes oriented to time Course 2 Vital Signs: Vital signs: Vital Signs Temperature 97.6 F 05/25/25 14:13 Pulse Rate 63 05/25/25 16:00 Respiratory Rate 16 05/25/25 14:13 Blood Pressure 112/72 05/25/25 16:00 Pulse Oximetry 97 05/25/25 16:00 Oxygen Delivery Me thod Room Air 05/25/25 16:00 MDM - GI Bleed Medical Decision Making Patient here for very small amounts of bright red blood per rectum. He just underwent EGD/colonoscopy 2 days ago. He did have some minor generalized abdominal discomfort but states this was not overly abnormal as he has had some chronic GI issues. He clinically appears in no acute distress. Vital signs are stable. Abdominal XR obtained to rule out perforation/free air. This was unremarkable. Blood work is unremarkable. Patient is stable for discharge from the emergency department. Patient was given signs and symptoms that should prompt a return visit. Otherwise he can follow-up with general surgery as scheduled. Differential Diagnosis Likely hemorrhoids, gastritis, Lower gastrointestinal hemorrhage, hematochezia and anal fissure Medical Records I reviewed the patient's medical records. Lab Data I reviewed the patient's lab results. 05/25/25 15:02 05/25/25 15:02 Laboratory Results WBC 9.10 10^3/uL (3.29-11.43) 05/25/25 15:02 RBC 5.00 10^6/uL (3.85-5.65) 05/25/25 15:02 Hgb 13.90 g/dL (11.27-16.99) 05/25/25 15:02 Hct 41.5 % (37-53) 05/25/25 15:02 MCV 83.0 fl (82-101) 05/25/25 15:02 MCH 27.8 pg (27-33) 05/25/25 15:02 MCHC 33.5 g/dL (30-55) 05/25/25 15:02 RDW 12.4 % (12.1-15.1) 05/25/25 15:02 Plt Count 262 10^3/cmm (157-399) 05/25/25 15:02 MPV 9.9 fL (7.4-10.4) 05/25/25 15:02 Neut % (Auto) 44.4 % 05/25/25 15:02 Lymph % (Auto) 43.8 % 05/25/25 15:02 [place] % (Auto) 8.5 % 05/25/25 15:02 Eos % (Auto) 2.4 % 05/25/25 15:02 Baso % (Auto) 0.7 % 05/25/25 15:02 Neut # (Auto) 4.04 10^3/uL (1.8-7.7) 05/25/25 15:02 Lymph # (Auto) 4.0 10^3/uL (0.8-4.8) 05/25/25 15:02 [place] # (Auto) 0.8 10^3/uL (0.2-0.9) 05/25/25 15:02 Eos # (Auto) 0.2 10^3/uL (0.0-0.8) 05/25/25 15:02 Baso # (Auto) 0.1 10^3/uL (0.0-0.1) 05/25/25 15:02 Nucleated RBC % (auto) 0 % 05/25/25 15:02 Nucleated RBCs # 0.0 /100WBC 05/25/25 15:02 Sodium 140 mmol/L (136-145) 05/25/25 15:02 Potassium 4.4 mmol/L (3.5-5.1) 05/25/25 15:02 Chloride 105 mmol/L (98-107) 05/25/25 15:02 Carbon Dioxide 23 mmol/L (22-29) 05/25/25 15:02 Anion Gap 16.4 (5-19) 05/25/25 15:02 BUN 11 mg/dL (6-20) 05/25/25 15:02 Creatinine 0.8 mg/dL (0.7-1.2) 05/25/25 15:02 GFR Calculation 116.0 mL/min (90-130) 05/25/25 15:02 Glucose 88 mg/dL (65-115) 05/25/25 15:02 Calculated Osmolality 289 mOsm/kg (285-295) 05/25/25 15:02 Calcium 9.3 mg/dL (8.5-10.5) 05/25/25 15:02 Total Bilirubin 0.3 mg/dL (0.15-1.2) 05/25/25 15:02 AST 24 U/L (0-40) 05/25/25 15:02 ALT 45 U/L (0-41) H 05/25/25 15:02 Alkaline Phosphatase 81 U/L (40-130) 05/25/25 15:02 Total Protein 7.7 g/dL (6.6-8.7) 05/25/25 15:02 Albumin 4.3 g/dL (3.5-5.2) 05/25/25 15:02 Globulin 3.4 g/dL (1.3-4.6) 05/25/25 15:02 Lipase 25 U/L (13-60) 05/25/25 15:02 Urine Color Yellow (Yellow) 05/25/25 15:44 Urine Appearance Clear (CLEAR) 05/25/25 15:44 Urine pH 5.0 (5-7) 05/25/25 15:44 Ur Specific [place] 1.026 (1.005-1.030) 05/25/25 15:44 Urine Protein Trace (Negative) A 05/25/25 15:44 Urine Glucose (UA) Negative (Normal) 05/25/25 15:44 Urine Ketones Negative (Negative) 05/25/25 15:44 Urine Blood Negative (Negative) 05/25/25 15:44 Urine Nitrate Negative (Negative) 05/25/25 15:44 Urine Bilirubin Negative (Negative) 05/25/25 15:44 Urine Urobilinogen 1.0 mg/dL (Negative) 05/25/25 15:44 Ur Leukocyte Esterase Negative (Negative) 05/25/25 15:44 Urine RBC 0-2 /hpf (0-2) 05/25/25 15:44 Urine WBC 0-5 /hpf (0-5) 05/25/25 15:44 Ur Squamous Epith Cells 0-5 /hpf (0-5) 05/25/25 15:44 Amorphous Sediment Not Reportable 05/25/25 15:44 Urine Bacteria None seen /hpf (NONE) 05/25/25 15:44 Hyaline Casts 0.40 /lpf 05/25/25 15:44 XR interpretation done by ED provider, pending radiology final review Discharge Plan Discharge Patient Disposition: Home Clinical Impression: BRBPR (bright red blood per rectum) Condition: Stable Prescriptions: No Action pantoprazole 40 mg tablet,delayed release (DR/EC) 40 mg PO DAILY 30 Days Qty: 30 2RF Discharge Orders: Discharge ED (Routine); Ordered 05/25/25 Ordered By: Oanh Brenner Referrals: Marilyn Lehman DO [Primary Care Provider, Family Practice] Patient Instructions: Patient Portal & Yojana Instructions Activity Restrictions/Additional Instructions: As we discussed, I would want to see you back in the emergency department for large amounts of blood coming from your rectum (several tablespoons per bowel movement or when wiping), worsening abdominal pain, fevers, generally feeling worse or unwell, or any other concerns you may have. Print Language: Georgian Coding Level of Care Code ED Ac/Dc Rewinder for Arleen Boyd
--- NOTE | 2025-05-25 15:32 | XRR_ITS ---
PROCEDURE INFORMATION: Exam: XR Abdomen Exam date and time: 05/25/2025 4:03 PM Age: 29 years old Clinical indication: Abdominal pain; Generalized; Additional info: Recent egd/colonoscopy; R/O free air/perforation TECHNIQUE: Imaging protocol: Radiologic exam of the abdomen. Views: 2 Views. Upright and supine views. COMPARISON: CT abdomen pelvis w con* [id number] 04/15/2025 3:20 PM FINDINGS: Gastrointestinal tract: Bowel gas pattern is unremarkable. No sign of obstruction. Moderate stool in the proximal colon. No visibly dilated small bowel. Intraperitoneal space: No intraperitoneal free air. Bones/joints: Bones are unremarkable. XR/XR abdomen min 2V [id number] IMPRESSION: No acute findings.
[2025-05-25 15:48] VITALS: BP 109/75; PULSE 93; O2SAT 97
[2025-05-25 15:59] LABS: Glucose Urine UA Negative (Normal); Nitrate Urine Negative (Negative); Specific Gravity, Urine 1.026 (1.005-1.030)
[2025-05-25 16:00] VITALS: BP 112/72; PULSE 63; O2SAT 97
[2025-05-25 16:04] LABS: Add Urine Microscopic? YES
[2025-05-25 16:53] VITALS: BP 113/81; PULSE 66; O2SAT 97
== END 2025-05-25 16:53 | disposition home or self-care (01) ==
PROVIDERS: Emergency Provider Physician Assistant; PCP Family Medicine
DX: K62.5 Hemorrhage of anus and rectum (principal)
CPT/HCPCS: 36415; 74019; 80053; 81001; 83690; 85025; 99284

== ENCOUNTER 2025-07-26 13:48 | Emergency (ER) | payer OTHER, SELFPAY ==
[2025-07-26 13:51] VITALS: BP 144/76; PULSE 112; RESP 18; TEMP 37.2; O2SAT 97; BMI 41.9
--- NOTE | 2025-07-26 13:52 | XRR_ITS ---
PROCEDURE INFORMATION: Exam: XR Chest Exam date and time: 07/26/2025 1:56 PM Age: 29 years old Clinical indication: Pain; Chest pressure; Additional info: Cp TECHNIQUE: Imaging protocol: Radiologic exam of the chest. Views: 1 view. COMPARISON: CR XR chest 1V portable [id number] 04/15/2025 2:51 PM FINDINGS: Lungs: No significant active pathology. Pleural spaces: No pleural effusion or pneumothorax. Heart/Mediastinum: Unremarkable. Diaphragm: Minimally elevated right hemidiaphragm. Bones/joints: No significant pathology. XR/XR chest 1V portable [id number] IMPRESSION: No acute pathology or significant interval change.
--- NOTE | 2025-07-26 13:53 | ECG_ITS ---
[facility] Date: 2025-07-26 Pat Name: Alvaro Chandra Department: Room: Gender: Male Idea Worker: : 1995 Requested By: Joshua Amaya Order Number: [id number] Reading MD: ZAHEER GRIJALVA Measurements Intervals [place] Rate: 97 P: 32 MT: 161 QRS: 58 QRSD: 96 T: -9 QT: 335 QTc: 427 Interpretive Statements SINUS RHYTHM ABNORMAL QRS-T ANGLE [QRS-T AXIS DIFFERENCE > 60] Compared to ECG 10/09/2024 07:09:37 Sinus tachycardia no longer present Electronically Signed On 07-26-2025 16:51:31 CDT by ZAHEER GRIJALVA [email or web address]
--- NOTE | 2025-07-26 13:53 | W.ED.ALLEREA ---
HPI - Allergic Reaction General: Chief complaint: Allergic Reaction Stated complaint: alpha gal reaction Source: patient and EMS Mode of arrival: EMS Limitations: no limitations History of Present Illness: HPI narrative: 29-year-old male has a history of alpha gal states he ate chocolate last night and he is allergic to it states morning woke up with abdominal pain he also had some slight dyspnea states that he felt like his throat was closing at work today and I did give him a dose of EpiPen before calling ambulance. He is continue have some slight abdominal cramping states its typical with his alpha gal that he feels is his heart is racing a little after the EpiPen. Denies any fever. Associated symptoms: Reports abdominal pain Related Data Previous Rx's ?Medication ?Instructions ?Recorded dicyclomine 20 mg tablet 20 mg PO TID #90 tabs 06/22/25 ondansetron 4 mg disintegrating 4 mg PO Q6H PRN nausea and 07/26/25 tablet vomiting #14 tabs Allergies Allergy/AdvReac Type Severity Reaction Status Date / Time Alpha-Gal Allergy Unknown Verified 06/27/25 14:37 (Ekwjprwkh-Hsgov-1,3-Gala Review of Systems GI: Reports: abdominal pain PFS ED PFSH: Medical History Hx of fracture of leg Open reduction internal fixation left distal fibular fracture- 04/16/23 Dr Angelo Depression Stopped taking Effexor 6-7 months ago. Family History Denies family history of Anesthesia complication Social History Smoking and tobacco/nicotine status: never used tobacco/nicotine Second hand smoke exposure: No Alcohol intake: never Substance/Drug Use: never Physical Exam Const: COMMON NORMALS: no acute distress, patient oriented x3 and healthy appearing HENMT: COMMON NORMALS: normocephalic and atraumatic HEAD & SCALP: normocephalic and atraumatic Neck/C-Spine: COMMON NORMALS: full ROM and supple Chest: COMMONS NORMALS: normal inspection of the chest Resp: COMMON NORMALS: normal respiratory effort, No retractions, No use of accessory muscles and clear to auscultation bilaterally AUSCULTATION: clear to auscultation bilaterally Cardio: COMMON NORMALS: regular rhythm and No murmurs present (Cardio) RATE: tachycardic RHYTHM: regular rhythm GI: COMMON NORMALS: Normal to inspection, nondistended, normoactive bowel sounds present, Soft to palpation, non-tender and no masses PALPATION: Yes Soft to palpation Extremity: COMMON NORMALS: normal to inspection and full ROM Neuro: COMMON NORMALS: patient oriented x3, moves all extremities and no focal motor deficits Psych: COMMON NORMALS: mental status grossly normal, Normal thought process present and cooperative THOUGHT PROCESS: Normal thought process present Skin: COMMON NORMALS: no rashes or lesions noted and no wounds GENERAL SKIN EXAM: no rashes or lesions noted Course Vital Signs: Vital signs: Vital Signs Temperature 98.9 F 07/26/25 13:51 Pulse Rate 112 H 07/26/25 13:51 Respiratory Rate 18 07/26/25 13:51 Blood Pressure 144/76 07/26/25 13:51 Pulse Oximetry 97 07/26/25 13:51 Oxygen Delivery Me thod Room Air 07/26/25 13:51 MDM - Allergic Reaction Medical Decision Making Patient presents here after allergic reaction likely from his alpha gal he did receive an EpiPen he is feeling much improved here. Does have some abdominal pain as well differential included appendicitis bowel obstruction pancreatitis and cholecystitis. I did CT his abdomen has he had elevated white count showed no of these findings did show a slight small bowel enteritis likely from his alpha gal. His white count is likely reactive from his allergic reaction in his appendectomy. Abdominal exam at discharge is benign he feels much improved I did go over his labs and CT findings with him his electrolytes were normal. Will prescribe Zofran for home use follow-up with his PCP and return if worsening he understands agrees to plan. Medical Records I reviewed the patient's medical records. Lab Data I reviewed the patient's lab results. 07/26/25 13:30 07/26/25 13:30 Radiology Impressions Chest X-Ray 07/26/25 13:52 IMPRESSION: No acute pathology or significant interval change. Laboratory Results WBC 17.22 10^3/uL (3.29-11.43) H 07/26/25 13:30 RBC 5.07 10^6/uL (3.85-5.65) 07/26/25 13:30 Hgb 14.20 g/dL (11.27-16.99) 07/26/25 13:30 Hct 42.0 % (37-53) 07/26/25 13:30 MCV 82.8 fl (82-101) 07/26/25 13:30 MCH 28.0 pg (27-33) 07/26/25 13:30 MCHC 33.8 g/dL (30-55) 07/26/25 13:30 RDW 12.2 % (12.1-15.1) 07/26/25 13:30 Plt Count 282 10^3/cmm (157-399) 07/26/25 13:30 MPV 10.9 fL (7.4-10.4) H 07/26/25 13:30 Neut % (Auto) 74.7 % 07/26/25 13:30 Lymph % (Auto) 19.0 % 07/26/25 13:30 [place] % (Auto) 5.5 % 07/26/25 13:30 Eos % (Auto) 0.3 % 07/26/25 13:30 Baso % (Auto) 0.2 % 07/26/25 13:30 Neut # (Auto) 12.85 10^3/uL (1.8-7.7) H 07/26/25 13:30 Lymph # (Auto) 3.3 10^3/uL (0.8-4.8) 07/26/25 13:30 [place] # (Auto) 1.0 10^3/uL (0.2-0.9) H 07/26/25 13:30 Eos # (Auto) 0.1 10^3/uL (0.0-0.8) 07/26/25 13:30 Baso # (Auto) 0.0 10^3/uL (0.0-0.1) 07/26/25 13:30 Nucleated RBC % (auto) 0 % 07/26/25 13:30 Nucleated RBCs # 0.0 /100WBC 07/26/25 13:30 D-Dimer <= 0.27 ug/mLFEU (0-0.59) 07/26/25 13:30 Sodium 139 mmol/L (136-145) 07/26/25 13:30 Potassium 3.6 mmol/L (3.5-5.1) 07/26/25 13:30 Chloride 100 mmol/L (98-107) 07/26/25 13:30 Carbon Dioxide 16 mmol/L (22-29) L 07/26/25 13:30 Anion Gap 26.6 (5-19) H 07/26/25 13:30 BUN 16 mg/dL (6-20) 07/26/25 13:30 Creatinine 0.8 mg/dL (0.7-1.2) 07/26/25 13:30 GFR Calculation 116.0 mL/min (90-130) 07/26/25 13:30 Glucose 118 mg/dL (65-115) H 07/26/25 13:30 Calculated Osmolality 290 mOsm/kg (285-295) 07/26/25 13:30 Calcium 10.1 mg/dL (8.5-10.5) 07/26/25 13:30 Total Bilirubin 0.5 mg/dL (0.15-1.2) 07/26/25 13:30 AST 31 U/L (0-40) 07/26/25 13:30 ALT 53 U/L (0-41) H 07/26/25 13:30 Alkaline Phosphatase 97 U/L (40-130) 07/26/25 13:30 Total Protein 8.9 g/dL (6.6-8.7) H 07/26/25 13:30 Albumin 5.2 g/dL (3.5-5.2) 07/26/25 13:30 Globulin 3.7 g/dL (1.3-4.6) 07/26/25 13:30 Lipase 20 U/L (13-60) 07/26/25 13:30 No radiology studies performed this visit EKG Data EKG 1: I personally reviewed and interpreted this EKG as follows: EKG interpretation date: 07/26/25 EKG interpretation time: 14:23 Interpretation: nsr hr [address] elevation qrs 96 qtc 390 Discharge Plan Discharge Patient Disposition: Home Clinical Impression: Allergic reaction, Alpha-gal syndrome, Abdominal pain Condition: Stable Prescriptions: New ondansetron 4 mg tablet,disintegrating 4 mg PO Q6H PRN (Reason: nausea and vomiting) Qty: 14 0RF No Action dicyclomine 20 mg tablet 20 mg PO TID Qty: 90 0RF Discharge Orders: Discharge ED (Routine); Ordered 07/26/25 Ordered By: Joshua Amaya Referrals: Marilyn Lehman DO [Primary Care Provider, Family Practice] - 4-7 days Discharge Diet: Advance as tolerated Discharge Activity: Resume usual activity Patient Instructions: Alpha-gal Syndrome (DC), Abdominal Pain (ED) Print Language: Swedish Coding Level of Care Code ED Dog Control Officer for Arleen Boyd
[2025-07-26] MEDS: ondansetron 2 mg/ML SDV 2 mL 4 MG IVP (14:07)
[2025-07-26] MEDS: LORazepam 1 MG/0.5 ML injection IVP (14:07)
[2025-07-26 14:32] LABS: Hematocrit 42.0 % (37-53); Hemoglobin 14.20 g/dL (11.27-16.99); Mean Corpuscular HGB Conc 33.8 g/dL (30-55); Mean Corpuscular Hemoglobin 28.0 pg (27-33); Mean Corpuscular Volume 82.8 fl (82-101); Nucleated Red Blood Cells % 0 %; Platelet Count 282 10^3/cmm (157-399); Red Blood Count 5.07 10^6/uL (3.85-5.65); White Blood Count 17.22 10^3/uL (3.29-11.43)
--- NOTE | 2025-07-26 14:40 | CT_ITS ---
WS: [id number] CT ABDOMEN PELVIS TECHNIQUE: Contrast-enhanced CT of the abdomen and pelvis with coronal and sagittal reformatted images. CLINICAL INFORMATION: abd pain COMPARISON: CT 04/15/2025 DLP: 1102.[address] scans at [facility] use at least one of these dose optimization techniques: automated exposure control; mA and/or kV adjustment per patient size (includes targeted exams where dose is matched to clinical indication); or iterative reconstruction. FINDINGS: Fatty liver. Normal GE junction. Normal pancreatic parenchymal enhancement. Adrenal glands are normal. No hydronephrosis in either kidney. Normal appendix. No evidence of acute appendicitis. Normal gallbladder. Normal portal vein and splenic vein. Celiac and SMA are patent. Few sigmoid diverticuli. Colon is otherwise normal in appearance. No evidence of high-grade small or large bowel obstruction. Small fat-containing umbilical hernia. Normal caliber abdominal aorta. Celiac and SMA are patent. CT/CT abdomen pelvis w con* [id number] IMPRESSION: 1. A few fluid distended small bowel loops in the RIGHT upper quadrant with pr ominent submucosal enhancement can be seen with infectious or inflammatory smal l bowel enteritis. No evidence of obstruction. 2. Fatty liver. 3. Normal gallbladder. 4. Normal appendix. 5. No hydronephrosis in either kidney. 6. No other acute findings.
[2025-07-26 14:49] LABS: Alanine Aminotransferase 53 U/L (0-41); Albumin Level 5.2 g/dL (3.5-5.2); Alkaline Phosphatase 97 U/L (40-130); Anion Gap 26.6 (5-19); Aspartate Amino Transferase 31 U/L (0-40); Blood Urea Nitrogen 16 mg/dL (6-20); Calcium 10.1 mg/dL (8.5-10.5); Carbon Dioxide 16 mmol/L (22-29); Chloride 100 mmol/L (98-107); Creatinine Clr Calc Pharmacy 167.6433; Globulin 3.7 g/dL (1.3-4.6); Glucose 118 mg/dL (65-115); Lipase 20 U/L (13-60); Osmolality Calculated 290 mOsm/kg (285-295); Potassium 3.6 mmol/L (3.5-5.1); Sodium 139 mmol/L (136-145); Total Protein 8.9 g/dL (6.6-8.7)
[2025-07-26] MEDS: iohexol 350 mg/mL 500 mL Btl (per mL) IV (14:58)
[2025-07-26 15:33] VITALS: BP 116/81; PULSE 98; O2SAT 99
== END 2025-07-26 15:37 | disposition home or self-care (01) ==
PROVIDERS: Emergency Provider Emergency Medicine; PCP Family Medicine
DX: T78.19XA Other adverse food reactions, not elsewhere classified, initial encounter (principal); Z91.014 Allergy to mammalian meats; R10.9 Unspecified abdominal pain; X58.XXXA Exposure to other specified factors, initial encounter
CPT/HCPCS: 71045; 74177; 80053; 83690; 85025; 85378; 93005; 96374; 96375; 99285; J2060; J2405; J7030

== ENCOUNTER → 2025-10-14 11:54 | Outpatient (BNVA) | payer SELFPAY | PROVIDERS: PCP Family Medicine; Visit Provider Emergency Medicine | DX: J02.9 Acute pharyngitis, unspecified (principal) | CPT/HCPCS: 87071; 87880 ==